=== PATIENT | female | born 1950 | race Caucasian/White ===

== ENCOUNTER 2018-04-29 12:41 | Inpatient (IN) | payer MEDICARE, MEDICAID ==
[2018-04-29 13:43] LABS: HEMATOCRIT 25.1 % (41.0-60); HEMOGLOBIN 8.6 gm/dL (12-16); MEAN CELL VOLUME 86.8 fl (81-100); MEAN CORPUSCULAR HEMOGLOBIN 29.7 pg (27.0-31.0); MEAN CORPUSCULAR HGB CONC 34.2 pg (28.0-36.0); MEAN PLATELET VOLUME 7.6 fl; PLATELET COUNT 186 Th/cmm (150-400); RED BLOOD COUNT 2.89 Mil/cmm (3.80-5.20); RED CELL DISTRIBUTION WIDTH 12.3 % (11.5-20.0); WHITE BLOOD COUNT 9.8 Th/cmm (4.8-10.8)
--- NOTE | 2018-04-29 14:04 | Diagnostic Imaging Report ---
Portable chest x-ray HISTORY: Fever The heart size is normal. Atherosclerotic calcination seen in the aorta. No acute focal point processes. There is an approximate 3.0 cm calcified nodular density within the left lower neck with slight encroachment on the left side of the trachea. Findings may be associated with a relatively large calcified thyroid nodule. Correlation with physical examination recommended. If needed, a CT scan would provide additional assessment. IMPRESSION: 1. No acute abnormalities 2. Atherosclerotic vascular changes 3. Calcified density in the left lower neck near the thoracic inlet. The finding may be associated with a relatively large calcified thyroid nodule. If necessary, a CT scan would provide additional assessment.
[2018-04-29 14:07] LABS: ALB/GLOB RATIO 1.2 (1.0-1.8); ALBUMIN 3.6 gm/dL (3.7-5.3); ANION GAP 14.8 (7.0-16.0); BILIRUBIN,TOTAL 0.3 mg/dL (0.3-1.0); CALCIUM SERUM 9.2 mg/dL (8.6-10.3); CARBON DIOXIDE 25.7 mEq/L (21.0-31.0); CREATININE - SERUM 1.2 mg/dL (0.6-1.2); GFR AFRICAN-AMERICAN 57.6 ml/min (>90); GFR NON AFRICAN-AMERICAN 47.6 ml/min; PHOSPHOROUS 4.1 mg/dL (2.5-5.0); POTASSIUM SERUM 4.5 mEq/L (3.5-5.1); TOTAL PROTEIN,SERUM 6.7 gm/dL (6.0-8.3)
[2018-04-29 14:27] LABS: URINE SOURCE CLEAN C
[2018-04-29 14:37] LABS: URINE BILIRUBIN NEGATIVE (NEGATIVE); URINE BLOOD NEGATIVE (NEGATIVE); URINE GLUCOSE (UA) NEGATIVE (NEGATIVE); URINE KETONE NEGATIVE (NEGATIVE); URINE LEUKOCYTE ESTERASE NEGATIVE (NEGATIVE); URINE NITRATE NEGATIVE (NEGATIVE); URINE PROTEIN NEGATIVE (NEGATIVE); URINE UROBILINOGEN 0.2 E.U./dL (0.2 - 1.0)
[2018-04-29 14:41] LABS: BAND NEUTROPHILE 0 % (0-10); LYMPHOCYTE 18 % (20-50); MONOCYTE 10 % (2-10); NEUTROPHILS 69 % (40-80)
[2018-04-29 14:42] LABS: BASOPHIL 0 % (0-3); EOSINOPHIL 3 % (0-5)
[2018-04-29 14:43] LABS: OPIATES (MORPHINE) QUAL. URINE POSITIVE (NEGATIVE)
[2018-04-29 14:44] LABS: AMPHETAMINE URINE NEGATIVE (NEGATIVE); BARBITURATES URINE NEGATIVE (NEGATIVE); BENZODIAZEPINES QUAL URINE NEGATIVE (NEGATIVE); CANNABINOID THC NEGATIVE (NEGATIVE); COCAINE METABOLITE QUAL URINE NEGATIVE (NEGATIVE); METHADONE URINE NEGATIVE (NEGATIVE); METHAMPHETAMINES QUAL URINE NEGATIVE (NEGATIVE); PHENCYCLIDINE (PCP) URINE NEGATIVE (NEGATIVE); TRICYCLICS (TCA) QUAL. URINE NEGATIVE (NEGATIVE)
[2018-04-29 14:55] LABS: INF A SCREEN NEG FOR INF A; INF B SCREEN NEG FOR INF B
[2018-04-29 15:06] LABS: URINE MICROSCOPIC INDICATED? YES
[2018-04-29 15:07] LABS: URINE BACTERIA FEW /hpf (NONE SEEN); URINE CLARITY CLEAR (CLEAR); URINE COLOR YELLOW; URINE EPITHELIAL CELLS FEW /lpf (FEW); URINE RBC NONE SEEN /hpf (0-5); URINE WBC 0-2 /hpf (0-5)
[2018-04-29] MEDS ORDERED: Lactated Ringer 1,000 ML IV ONE ×2 (15:57→16:37)
[2018-04-29] MEDS ORDERED: IOHEXOL 300mgI/mL 100 ML VIAL ONE (15:57)
--- NOTE | 2018-04-29 19:29 | ED Physician Chart ---
ED Chief Complaint/HPI - Patient Information Date Seen:: 04/29/18 Time Seen:: 12:45 Chief Complaint:: fever for a few days History of Present Illness:: fever for a few days. no complaints except for chronic pain. Allergies:: Allergies Allergy/AdvReac Type Severity Reaction Status Date / Time duloxetine Allergy Verified 04/29/18 12:56 gabapentin Allergy Verified 04/29/18 12:55 Vitals:: Vital Signs - 8 hr 04/29/18 04/29/18 04/29/18 12:45 15:39 16:11 Temp 100.6 F 98.8 F 98.8 F HR 92 92 85 RR 18 19 21 BP 116/72 89/49 90/58 O2 Sat % 94 94 94 04/29/18 04/29/18 16:49 19:14 Temp 98.8 F 98.8 F HR 74 81 RR 16 21 BP 83/38 91/50 O2 Sat % 97 Historian:: Medical Records Review:: Nurse's Note Reviewed, Transfer documents Reviewed ED Review of Systems - Review of Systems General/Constitutional: Fever, No chills, Weakness, No diaphoresis, No edema, No loss of appetite Skin: No rash, No bruising, Other (Stage II sacral decubitus. Stage I heel decubitii) Head: No headache, No light-headedness Eyes: No loss of vision, No pain, No diplopia ENT: No earache, No nasal drainage, No sore throat, No tinnitus Neck: No neck pain, No swelling, No thyromegaly, No stiffness, No mass noted Cardio Vascular: No chest pain, No palpitations, No PND, No orthopnea, No edema Pulmonary: No SOB, No cough, No sputum, No wheezing GI: No nausea, No vomiting, No diarrhea, No pain, No melena, No hematochezia, No constipation, No hematemesis G/U: No dysuria, No frequency, No hematuria Musculoskeletal: No bone or joint pain, No back pain, No muscle pain Endocrine: No polyuria, No polydipsia Psychiatric: No prior psych history, No depression, No anxiety, No suicidal ideation Hematopoietic: No bruising, No lymphadenopathy Allergic/Immuno: No urticaria, No angioedema Neurological: No syncope, No focal symptoms, No weakness, No paresthesia, No headache, No seizure, No dizziness, No confusion, No vertigo ED Past Medical History - Past Medical History Obtainable: No Family Medical History - Family Member Mother History Unknown: Yes ED Physical Exam - Physical Examination General/Constitutional: Awake, Alert, No distress Other Gen/Cons comments:: thin, chronically ill appearing. Head: Atraumatic Eyes: Lids, conjuctiva normal, PERRL, EOMI Other Skin comments:: Stage II sacral decubitus. Stage I heel decubitii ENMT: External ears, nose nl Neck: Nontender, No nuchal rigidity, No stridor Respiratory: Nl effort/Exclusion, Clear to Auscultation, No Wheeze/Rhonchi/Rales Cardio Vascular: RRR, No murmur, gallop, rubs, NL S1 S2 GI: No tenderness/rebounding/guarding, No organomegaly, No hernia, Normal BS's, Nondistended, No mass/bruits, No McBurney tenderness : No CVA tenderness Other Extremities comments:: Stage II sacral decubitus. Stage I heel decubitii Other Neuro/Psych comments:: knows she is in the hospital. screaming for pain medicine and whining nonstop. Other Misc comments:: Stage II sacral decubitus. Stage I heel decubitii ED Labs/Radiology/EKG Results - Lab Results Results: Laboratory Tests 04/29/18 04/29/18 04/29/18 13:35 13:35 13:35 WBC 9.8 RBC 2.89 L Hgb 8.6 L Hct 25.1 L MCV 86.8 MCH 29.7 MCHC Differential 34.2 RDW 12.3 Plt Count 186 MPV 7.6 Add Manual Diff YES Band Neutrophils % 0 Neutrophils (Manual) 69 Lymphocytes 18 L Monocytes 10 Eosinophils 3 Basophils 0 Sodium 138 Potassium 4.5 Chloride 102 Carbon Dioxide 25.7 Anion Gap 14.8 BUN 35 H Creatinine 1.2 Est GFR ( Amer) 57.6 Est GFR (Non-Af Amer) 47.6 BUN/Creatinine Ratio 29.2 Glucose 119 H Whole Bld Lactic Acid 1.60 Calcium 9.2 Phosphorus 4.1 Magnesium 2.0 Total Bilirubin 0.3 AST 10 L ALT 10 Alkaline Phosphatase 109 H Total Protein 6.7 Albumin 3.6 L Globulin 3.1 Albumin/Globulin Ratio 1.2 Urine Source Urine Color Urine Clarity Urine pH Ur Specific [place] Urine Protein Urine Glucose (UA) Urine Ketones Urine Blood Urine Nitrate Urine Bilirubin Urine Urobilinogen Ur Leukocyte Esterase Urine RBC Urine WBC Ur Epithelial Cells Urine Bacteria Urine Opiates Screen Urine Methadone Screen Ur Barbiturates Screen Ur Tricyclics Screen Ur Phencyclidine Scrn Amphetamines Screen U Methamphetamines Scrn U Benzodiazepines Scrn U Cocaine Metab Screen U Cannabinoids Screen Influenza A (Rapid) Influenza B (Rapid) 04/29/18 04/29/18 04/29/18 14:00 14:00 14:00 WBC RBC Hgb Hct MCV MCH MCHC Differential RDW Plt Count MPV Add Manual Diff Band Neutrophils % Neutrophils (Manual) Lymphocytes Monocytes Eosinophils Basophils Sodium Potassium Chloride Carbon Dioxide Anion Gap BUN Creatinine Est GFR ( Amer) Est GFR (Non-Af Amer) BUN/Creatinine Ratio Glucose Whole Bld Lactic Acid Calcium Phosphorus Magnesium Total Bilirubin AST ALT Alkaline Phosphatase Total Protein Albumin Globulin Albumin/Globulin Ratio Urine Source CLEAN C Urine Color YELLOW Urine Clarity CLEAR Urine pH 6.0 Ur Specific [place] 1.015 Urine Protein NEGATIVE Urine Glucose (UA) NEGATIVE Urine Ketones NEGATIVE Urine Blood NEGATIVE Urine Nitrate NEGATIVE Urine Bilirubin NEGATIVE Urine Urobilinogen 0.2 Ur Leukocyte Esterase NEGATIVE Urine RBC NONE SEEN Urine WBC 0-2 Ur Epithelial Cells FEW Urine Bacteria FEW Urine Opiates Screen POSITIVE H Urine Methadone Screen NEGATIVE Ur Barbiturates Screen NEGATIVE Ur Tricyclics Screen NEGATIVE Ur Phencyclidine Scrn NEGATIVE Amphetamines Screen NEGATIVE U Methamphetamines Scrn NEGATIVE U Benzodiazepines Scrn NEGATIVE U Cocaine Metab Screen NEGATIVE U Cannabinoids Screen NEGATIVE Influenza A (Rapid) NEG FOR INF A Influenza B (Rapid) NEG FOR INF B ED Assessment - Assessment General Assessment: patient was whining nonstop that she didn't get her pain medicine. Ativan 0.5 mg IV given to relax her for CT scan with SBP of 130. Became very sedated with Ativan 0.5 mg IV. SBP drop to 80 systolic. 1 liter bolus of LR given. Patient went over for CT scan when SBP over 100. CT scan of neck (which showed a "2.5 x 4.2 x 2.3 cm calcified nodule of the left lobe of the thyroid with substernal extension." CT scan of the head read after patient remained still sedated after Romazicon 0.[address] right after head trauma in the past was negative. CT of the head today: NAD; chronic white matter changes; ASVD. Patient fed herself dinner. Sleeping with desaturations to 92%--oxygen placed at 19:00. Dr. Bernal answered pages after a time and gave admit orders for this patient. EK:44:26 p.m. normal sinus rhythm with flipped t wave in AVL. ED Septic Shock - . Is Septic Shock (SBP<90, OR Lactate>4 mmol\\L) present?: No - <6hrs of presentation: Vital Signs: Vital Signs - 8 hr 04/29/18 04/29/18 04/29/18 12:45 15:39 16:11 Temp 100.6 F 98.8 F 98.8 F HR 92 92 85 RR 18 19 21 BP 116/72 89/49 90/58 O2 Sat % 94 94 94 04/29/18 04/29/18 16:49 19:14 Temp 98.8 F 98.8 F HR 74 81 RR 16 21 BP 83/38 91/50 O2 Sat % 97 ED Reassessment (Disposition) - Reassessment Reassessment Condition:: Improved - Diagnosis Diagnosis:: Fever Hypotension Concussion (prior head trauma) Right frontal hematoma. Hypoxia Sedation Anemia with hematocrit of 25 Left thyroid nodule with extension substernally. - Patient Disposition Discharge/Transfer:: Acute Care w/in this hosp Admitted to:: Telemetry Condition at Disposition:: Stable, Improved
[2018-04-29] MEDS ORDERED: Acetaminophen 500 MG TAB PO PRN (22:02)
[2018-04-29] MEDS ORDERED: Albuterol/Ipratropium Neb 3 ML AERS HHN PRN (22:02)
[2018-04-29 22:06] VITALS: BP 133/57
[2018-04-29] MEDS ORDERED: Piperacillin Sodium/Tazobact 2.25 gm Vial IV ONE (22:52)
[2018-04-29] MEDS: Sodium Chloride 0.9% 1,000 ML IV SCH (22:52)
[2018-04-29] MEDS: Piperacillin/Tazobact 2.25 gm in 0.9% NS 50 ML IV SCH (22:54)
[2018-04-30] MEDS: Albuterol/Ipratropium Neb 3 ML AERS HHN SCH ×4 (03:01→19:58)
[2018-04-30] MEDS ORDERED: Piperacillin Sodium/Tazobact 2.25 gm Vial IV ONE (04:05)
[2018-04-30] MEDS: Piperacillin/Tazobact 2.25 gm in 0.9% NS 50 ML IV SCH ×3 (04:08→17:51)
[2018-04-30 05:02] LABS: % BASOPHILS 0.7 % (0.0-2.0); % EOSINOPHILS 6.2 % (0.0-5.0); % LYMPHOCYTES 16.6 % (20.0-50.0); % MONOCYTES 13.1 % (2.0-10.0); % NEUTROPHILS 63.4 % (40.0-80.0); EOSINOPHILE ABSOLUTE 0.3 Th/cmm (0.1-0.4); HEMATOCRIT 23.5 % (41.0-60); LYMPHOCYTE ABSOLUTE 0.8 Th/cmm (1.5-3.0); MEAN CELL VOLUME 86.4 fl (81-100); MEAN CORPUSCULAR HEMOGLOBIN 29.2 pg (27.0-31.0); MEAN CORPUSCULAR HGB CONC 33.8 pg (28.0-36.0); MONOCYTE ABSOLUTE 0.7 Th/cmm (0.3-1.0); NEUTROPHILE ABSOLUTE 3.3 Th/cmm (1.8-8.0); PLATELET COUNT 171 Th/cmm (150-400); RED BLOOD COUNT 2.72 Mil/cmm (3.80-5.20); RED CELL DISTRIBUTION WIDTH 12.3 % (11.5-20.0)
[2018-04-30 05:08] LABS: WHITE BLOOD COUNT 5.1 Th/cmm (4.8-10.8)
[2018-04-30 05:20] LABS: ANION GAP 11.7 (7.0-16.0); BUN - UREA NITROGEN 30 mg/dL (7-25); CALCIUM SERUM 8.5 mg/dL (8.6-10.3); CARBON DIOXIDE 26.4 mEq/L (21.0-31.0); CHLORIDE 105 mEq/L (98-107); CREATININE - SERUM 1.1 mg/dL (0.6-1.2); GFR AFRICAN-AMERICAN > 60.0 ml/min (>90); GFR NON AFRICAN-AMERICAN 52.7 ml/min; GLUCOSE 111 mg/dL (70-105); POTASSIUM SERUM 4.1 mEq/L (3.5-5.1); SODIUM SERUM 139 mEq/L (136-145)
[2018-04-30] MEDS: Hydrocodone/APAP 10 mg/325 mg Tab PO PRN ×3 (05:54→20:23)
--- NOTE | 2018-04-30 08:28 | Consultation ---
DATE OF CONSULTATION: 04/29/2018 INFECTIOUS DISEASE CONSULTATION REFERRING PHYSICIAN: Dr. Eric Bernal. REASON FOR CONSULTATION: Fever, sepsis. HISTORY OF PRESENT ILLNESS: The patient is a 68-year-old female with past medical history of dementia, sacral stage 2 decubitus ulcer, COPD, hyperlipidemia, hepatitis C, brought in from the nursing facility for chronic pain and fever for last few days. On initial evaluation, the patient's temperature 100.6 degrees Fahrenheit and WBC count 9800. Influenza screen was negative. The patient was found to have some swelling on the right forehead. Zosyn was started and ID consult was called for further antibiotic management. Meanwhile sepsis workup was performed. A urinalysis was noncontributory. Chest x-ray was also noncontributory. The patient also found to have hypotensive with a systolic blood pressure going down to 83. The patient received bolus. PAST MEDICAL HISTORY: Includes dementia, COPD, chronic pain syndrome, hyperlipidemia, and chronic hepatitis C. ALLERGIES: GABAPENTIN AND DULOXETINE. MEDICATIONS: Per medication reconciliation sheet. Antibiotic sr, the patient is on Zosyn. SOCIAL HISTORY: The patient lives in a nursing facility. No history of smoking, alcohol, or drug use. FAMILY HISTORY: Not available. REVIEW OF SYSTEMS: The patient is a poor historian, but the patient has a fever for the last few days. The patient has swelling on the right forehead. PHYSICAL EXAMINATION: VITAL SIGNS: Show temperature 97.9 degrees Fahrenheit, pulse 77, respirations 16, blood pressure 114/45. GENERAL: The patient is comfortable lying in the bed, not in any acute distress, well nourished, well developed as per the age and sex. HEENT: Head is normocephalic, atraumatic. Oral cavity moist, pink tongue. Eyes: No pallor, no icterus. Pupils PERRLA, EOMI. FACE: The patient has swelling on right forehead just below the hairline. NECK: Supple, no JVD, no carotid bruit. Trachea in midline. No thyromegaly. CHEST: Bilateral vesicular sounds, no crackles or wheezing. HEART: S1, S2 within normal limits. Regular rhythm. No murmur, no gallop. ABDOMEN: Soft, nontender, nondistended. Bowel sounds present. EXTREMITIES: No cyanosis, no clubbing, no edema. NEUROLOGIC: Alert and awake, but sedated at this time with the medication. LABORATORY DATA: Current lab shows WBC count is 9800, hemoglobin 8.6, hematocrit 25.1, platelets are 186,000, and neutrophils 69%. Sodium is 138, potassium 4.5, chloride 102, bicarbonate is 26, BUN is 25, creatinine 1.2, and glucose 119. Urinalysis shows negative nitrite, negative leukoesterase, wbc's 0-2, and few bacteria. Urine for drug screen was positive for opiate. Influenza A and B screen is negative. Chest x-ray shows calcified density in the left lower neck near the thoracic inlet. Findings may be associated with relatively large calcified thyroid nodule. Sepsis workup is pending. IMPRESSION: 1. Hypotension and fever, may have sepsis. 2. Right forehead hematoma versus cellulitis or abscess. 3. Chronic hepatitis C. 4. Chronic pain syndrome. 5. Hyperlipidemia. 6. Dementia. 7. Chronic obstructive pulmonary disease. 8. Anemia. RECOMMENDATIONS AND PLAN: We will check alpha fetoprotein. Follow up sepsis workup. Antibiotic sr, continue Zosyn. Fluid support. Thank you, Dr. Eric Bernal for involving me in taking care of this patient. JOB# [id number]
[2018-04-30] MEDS: Sodium Chloride 0.9% 1,000 ML IV SCH (08:44)
--- NOTE | 2018-04-30 09:05 | Diagnostic Imaging Report ---
CT scan soft tissues of the neck with intravenous contrast HISTORY: Mass. Total DLP equals 248 CTDI equals 9.4 Axial sections were obtained from the lower orbits down to level below the thoracic inlet. The exam demonstrates an approximate 2.5 x 4.2 x 2.3 cm calcified nodule within the lower pole of the left lobe of the thyroid gland. Substernal extension. There is preservation of normal fat planes about the major muscular bundles of the neck and about the major vascular landmarks. No lymphadenopathy. The parotid glands appear normal bilaterally. The submandibular glands appear normal. No abnormality seen through the oropharynx. The hypopharyngeal region is unremarkable. No abnormality seen to the region of the vocal cords. The cervical trachea appears normal. IMPRESSION: 1. Calcified nodule within the lower pole of the left lobe of the thyroid gland with substernal extension. Mild encroachment on the adjacent trachea.
--- NOTE | 2018-04-30 09:19 | Diagnostic Imaging Report ---
CT scan of the brain without intravenous contrast HISTORY: Stroke, CVA Total DLP equals 623 CTDI equals 35.4 Axial sections were obtained from the base of the skull to the vertex. There is prominence/enlargement of the ventricular system size. Associated enlargement of cerebral sulci and subarachnoid cisterns. Findings are consistent with changes of generalized cerebral atrophy. No acute parenchymal abnormalities. No acute cerebral hemorrhage. Hypodensity is seen within the supratentorial white matter regions without mass effect. The findings may be associated with chronic small vessel ischemic disease. No extra-axial masses or abnormal fluid collections. Atherosclerotic vascular changes noted. IMPRESSION: 1. No acute abnormalities 2. Cerebral atrophy 3. Supratentorial white matter changes that may reflect chronic small vessel ischemic disease 4. Atherosclerotic vascular changes
--- NOTE | 2018-04-30 17:11 | Infectious Disease Prog Note ---
Infectious Disease Subjective - Review of Systems Service Date: 04/30/18 Subjective: There is no new change, no fever. Infectious Disease Objective - Results Result Diagrams: 04/30/18 04:45 04/30/18 04:45 Recent Labs: Laboratory Last Values WBC 5.1 Th/cmm (4.8-10.8) D 04/30/18 04:45 RBC 2.72 Mil/cmm (3.80-5.20) L 04/30/18 04:45 Hgb 8.0 gm/dL (12-16) L 04/30/18 04:45 Hct 23.5 % (41.0-60) L 04/30/18 04:45 MCV 86.4 fl (81-100) 04/30/18 04:45 MCH 29.2 pg (27.0-31.0) 04/30/18 04:45 MCHC Differential 33.8 pg (28.0-36.0) 04/30/18 04:45 RDW 12.3 % (11.5-20.0) 04/30/18 04:45 Plt Count 171 Th/cmm (150-400) 04/30/18 04:45 MPV 7.0 fl 04/30/18 04:45 Add Manual Diff YES 04/29/18 13:35 Neutrophils % 63.4 % (40.0-80.0) 04/30/18 04:45 Band Neutrophils % 0 % (0-10) 04/29/18 13:35 Lymphocytes % 16.6 % (20.0-50.0) L 04/30/18 04:45 Monocytes % 13.1 % (2.0-10.0) H 04/30/18 04:45 Eosinophils % 6.2 % (0.0-5.0) H 04/30/18 04:45 Basophils % 0.7 % (0.0-2.0) 04/30/18 04:45 Neutrophils (Manual) 69 % (40-80) 04/29/18 13:35 Lymphocytes 18 % (20-50) L 04/29/18 13:35 Monocytes 10 % (2-10) 04/29/18 13:35 Eosinophils 3 % (0-5) 04/29/18 13:35 Basophils 0 % (0-3) 04/29/18 13:35 Sodium 139 mEq/L (136-145) 04/30/18 04:45 Potassium 4.1 mEq/L (3.5-5.1) 04/30/18 04:45 Chloride 105 mEq/L (98-107) 04/30/18 04:45 Carbon Dioxide 26.4 mEq/L (21.0-31.0) 04/30/18 04:45 Anion Gap 11.7 (7.0-16.0) 04/30/18 04:45 BUN 30 mg/dL (7-25) H 04/30/18 04:45 Creatinine 1.1 mg/dL (0.6-1.2) 04/30/18 04:45 Est GFR ( Amer) > 60.0 ml/min (>90) 04/30/18 04:45 Est GFR (Non-Af Amer) 52.7 ml/min 04/30/18 04:45 BUN/Creatinine Ratio 27.3 04/30/18 04:45 Glucose 111 mg/dL (70-105) H 04/30/18 04:45 Whole Bld Lactic Acid 1.60 mmol/L (0.60-1.99) 04/29/18 13:35 Calcium 8.5 mg/dL (8.6-10.3) L 04/30/18 04:45 Phosphorus 4.1 mg/dL (2.5-5.0) 04/29/18 13:35 Magnesium 2.0 mg/dL (1.9-2.7) 04/29/18 13:35 Total Bilirubin 0.3 mg/dL (0.3-1.0) 04/29/18 13:35 AST 10 U/L (13-39) L 04/29/18 13:35 ALT 10 U/L (7-52) 04/29/18 13:35 Alkaline Phosphatase 109 U/L (34-104) H 04/29/18 13:35 Total Protein 6.7 gm/dL (6.0-8.3) 04/29/18 13:35 Albumin 3.6 gm/dL (3.7-5.3) L 04/29/18 13:35 Globulin 3.1 gm/dL 04/29/18 13:35 Albumin/Globulin Ratio 1.2 (1.0-1.8) 04/29/18 13:35 Urine Source CLEAN C 04/29/18 14:00 Urine Color YELLOW 04/29/18 14:00 Urine Clarity CLEAR (CLEAR) 04/29/18 14:00 Urine pH 6.0 (4.6 - 8.0) 04/29/18 14:00 Ur Specific [place] 1.015 (1.005-1.030) 04/29/18 14:00 Urine Protein NEGATIVE mg/dL (NEGATIVE) 04/29/18 14:00 Urine Glucose (UA) NEGATIVE mg/dL (NEGATIVE) 04/29/18 14:00 Urine Ketones NEGATIVE mg/dL (NEGATIVE) 04/29/18 14:00 Urine Blood NEGATIVE (NEGATIVE) 04/29/18 14:00 Urine Nitrate NEGATIVE (NEGATIVE) 04/29/18 14:00 Urine Bilirubin NEGATIVE (NEGATIVE) 04/29/18 14:00 Urine Urobilinogen 0.2 E.U./dL (0.2 - 1.0) 04/29/18 14:00 Ur Leukocyte Esterase NEGATIVE (NEGATIVE) 04/29/18 14:00 Urine RBC NONE SEEN /hpf (0-5) 04/29/18 14:00 Urine WBC 0-2 /hpf (0-5) 04/29/18 14:00 Ur Epithelial Cells FEW /lpf (FEW) 04/29/18 14:00 Urine Bacteria FEW /hpf (NONE SEEN) 04/29/18 14:00 Urine Opiates Screen POSITIVE (NEGATIVE) H 04/29/18 14:00 Urine Methadone Screen NEGATIVE (NEGATIVE) 04/29/18 14:00 Ur Barbiturates Screen NEGATIVE (NEGATIVE) 04/29/18 14:00 Ur Tricyclics Screen NEGATIVE (NEGATIVE) 04/29/18 14:00 Ur Phencyclidine Scrn NEGATIVE (NEGATIVE) 04/29/18 14:00 Amphetamines Screen NEGATIVE (NEGATIVE) 04/29/18 14:00 U Methamphetamines Scrn NEGATIVE (NEGATIVE) 04/29/18 14:00 U Benzodiazepines Scrn NEGATIVE (NEGATIVE) 04/29/18 14:00 U Cocaine Metab Screen NEGATIVE (NEGATIVE) 04/29/18 14:00 U Cannabinoids Screen NEGATIVE (NEGATIVE) 04/29/18 14:00 Influenza A (Rapid) NEG FOR INF A 04/29/18 14:00 Influenza B (Rapid) NEG FOR INF B 04/29/18 14:00 - Physical Exam Vitals and I&O: Vital Signs Temp 98.2 F 04/30/18 16:05 Pulse 80 04/30/18 16:05 Resp 20 04/30/18 16:05 BP 108/46 04/30/18 16:05 Pulse Ox 95 04/30/18 16:05 Intake & Output 04/29/18 04/30/18 04/30/18 18:59 06:59 18:59 Intake Total 1100 1036.667 Balance 1100 1036.667 Weight (lbs) 52.163 kg Intake: Intake, IV Amount 1100 1036.667 Lactated Ringer 1,000 ml 1000 @ 500 mls/hr IV .Q2H ONE Rx#:[id number] Piperacillin Sodium/ 100 50 Tazobact 2.25 gm In Sodium Chloride 0.9% 50 ml @ 100 mls/hr IV Q6H BR[facility]NEY Rx#:[id number] Sodium Chloride 0.9% 1, 986.667 000 ml @ 100 mls/hr IV . Q10H [facility]NEY Rx#:[id number] Other: Weight Source Patient stated Active Medications: Current Medications Acetaminophen (Tylenol Extra Strength) 500 mg PO Q4H PRN PRN Reason: Fever >101 Stop: 06/28/18 22:01 Acetaminophen/Hydrocodone Bitart ([place] 10 Mg/325 Mg) 1 tab PO Q6H PRN PRN Reason: Pain (Severe) Stop: 06/28/18 22:01 Last Admin: 04/30/18 14:23 Dose: 1 tab Albuterol/Ipratropium (Duoneb Neb) 3 ml HHN Q6HRT BRITTNEY Stop: 06/29/18 00:59 Last Admin: 04/30/18 13:55 Dose: 3 ml Albuterol/Ipratropium (Duoneb Neb) 3 ml HHN Q2H PRN PRN Reason: Wheezing Stop: 06/28/18 22:01 Sodium Chloride (Nacl 0.9%) 1,000 mls @ 100 mls/hr IV .Q10H [place]NEY Stop: 06/28/18 22:01 Last Admin: 04/30/18 08:44 Dose: 100 mls/hr Piperacillin Sod/Tazobactam (Sod 2.25 gm/ Sodium Chloride) 50 mls @ 100 mls/hr IV Q6H BRITTNEY; Protocol Stop: 06/28/18 22:44 Last Infusion: 04/30/18 13:09 Dose: Infused Ondansetron HCl (Zofran) 4 mg IV Q6H PRN PRN Reason: Nausea / Vomiting Stop: 06/28/18 22:01 General: no acute distress, well developed, well nourished HEENT: atraumatic, normocephalic, PERRLA, EOMI Neck: supple, no thyromegaly Cardiovascular: S1S2, regular Lungs: clear to auscultation bilaterally, clear to percussion Abdomen: soft, bowel sounds, no tender, no distended, no mass, no hepatomegaly Extremities: no cyanosis, no clubbing, no edema Neurological: awake, alert, oriented Skin: intact Infectious Disease Assmt/Plan - Assessment Assessment: 1. Hypotension and fever, may have sepsis. 2. Right forehead hematoma versus cellulitis or abscess. 3. Chronic hepatitis C. 4. Chronic pain syndrome. 5. Hyperlipidemia. 6. Dementia. 7. Chronic obstructive pulmonary disease. 8. Anemia. - Plan Plan: Continue the same treatment.
[2018-04-30] MEDS ORDERED: Nicotine 21 mg/24 hr Tdm TD SCH (20:00)
--- NOTE | 2018-04-30 20:01 | History & Physical ---
ADMIT DATE: 04/30/2018 PULMONARY CONSULTATION NOTE REASON FOR CONSULTATION: Shortness of breath. HISTORY OF PRESENT ILLNESS: This is a 68-year-old female who had had a fall a couple of weeks ago hurting her head and subsequently she was at [facility] where she was doing okay, but last 2-3 days, the patient started having a fever, 122 according to the daughter. Subsequently, the patient was brought here and I was asked to see this patient because of shortness of breath. The patient has advanced COPD, quit smoking 2-1/2 equal or more than [id number] smoker. He has a significant neuropathy is taking lot of analgesic. The patient says she has chronic shortness of breath from nonproductive coughing versus abscess with taking a lot of pain medicine including [place] at this time. No pleuritic chest pain. Denies of any hemoptysis, etc. PAST MEDICAL HISTORY: History of neuropathy, history of COPD, history of chronic pain syndrome, recently fever and a history of recent head injury, but otherwise unremarkable and smoking history as mentioned before, but otherwise unremarkable. Denies of any specific allergies to any medications except for gabapentin and ____ antidepressant. PHYSICAL EXAMINATION: GENERAL: This is an elderly looking female and says complains of pain. No respiratory distress, etc. VITAL SIGNS: The patient's recorded temperature is 98.2, blood pressure 108/46, saturation is 95% on room air. HEENT: There is a bump with some ecchymosis on the ____ area that looks like an old bump. Pupils appear to be equal and react to light. Conjunctivae are slightly pallor. Oral cavity shows edentulous. NECK: No nodes in the neck could be palpated. CHEST: Shows occasional rhonchi with diminished air entry. HEART: Regular. ABDOMEN: Soft, nontender. EXTREMITIES: Shows atrophic changes, otherwise unremarkable. LABORATORY DATA: White count is 5.1, lymphocytes 16. Electrolytes okay. BUN is 30. Sugar is 111 and urine is benign except for opiates is positive and the patient's CT of the neck shows some calcified nodule in the lower pole of the left lower lobe thyroid, otherwise unremarkable and the patient's chest x-ray shows consistent COPD. IMPRESSION: 1. Fever, etiology not clearcut. 2. Mild asthmatic bronchitis. 3. History of recent fall. 4. History of severe peripheral neuropathy. PLANS AND SUGGESTIONS: We will continue aggressive respiratory care inhalation treatment, and will defer pain management per primary and go from there. JOB# [id number]
[2018-04-30] MEDS: Nicotine 21 mg/24 hr Tdm TD SCH (20:19)
--- NOTE | 2018-04-30 22:22 | History & Physical ---
ADMIT DATE: 04/29/2018 CHIEF COMPLAINT: Fever. HISTORY OF PRESENT ILLNESS: This is a 68-year-old female with underlying history of COPD, chronic pain syndrome, chronic smoker, who [facility], started developing fever, productive cough, shortness of breath, so the patient was brought back to the Emergency Room. The patient was evaluated. The patient noticed to have hypotension, so the patient admitted for sepsis workup. During my evaluation, she feels fine, still has productive cough with chest congestions. No reported fever since admission. The patient also complained both lower extremity weakness. The patient stated for the past 6 months, general condition was declining, eventually became bed bound. Also, has decreased appetite. She is not eating and drinking well. Family was at the bedside during my evaluation. PAST MEDICAL HISTORY: COPD and chronic pain syndrome. PAST SURGICAL HISTORY: Hip surgery in the past. FAMILY HISTORY: Noncontributory. SOCIAL HISTORY: Chronic smoker for 50 plus years of smoking. No alcohol or drug use reported. REVIEW OF SYSTEMS: Positive for cough, weakness, shortness of breath. No nausea, no vomiting, no chest pain, no abdominal pain. No hematemesis, no melena or hematuria. No headache, no trouble vision or trouble speech, no upper extremity weakness. Lower extremity weakness reported. PHYSICAL EXAMINATION: VITAL SIGNS: Her temperature 98.2, pulse , respirations 20, blood pressure , 95% on room air. Pain 0/10. GENERAL APPEARANCE: The patient does not seem in distress, sitting comfortably in the bed. HEENT: No neck stiffness. Negative for JVD. CHEST: Bilateral rales noted. HEART: S1, S2 normal. LUNGS: Clear. ABDOMEN: Soft, nontender. NEUROLOGIC: Alert, follows command. Both lower extremities strength 3/5, upper extremities strength is normal. DTR +2 in both upper and lower extremity. AVAILABLE LABORATORY DATA: WBC is 5.1, hemoglobin is 8.0, platelets is 171. Sodium 139, potassium 4.1, BUN 30, creatinine 1.1. Lactic acid 1.6, AST 10, ALT 10, total protein 6.7, albumin 3.6, globulin 3.1. Chest x-ray negative for any significant infiltrate. Head CT negative for acute significant finding. Soft tissue neck CT: Calcified nodule in left lower thyroid gland with substernal extension noted. ASSESSMENT: 1. Fever, hypotension, rule out sepsis. 2. Acute tracheobronchitis. 3. Anemia. 4. Chronic smoker. 5. Lower extremity weakness. 6. Chronic pain syndrome. 7. Cachexia. 8. Chronic pain syndrome. PLAN: The patient admitted to tele unit. The patient was started on empiric IV broad spectrum antibiotic. ID and Pulmonology consulted. CT chest ordered by photoresist contact printer. Physical therapy ordered. Tumor markers ordered. Neurology consulted for lower extremity weakness. The patient got nicotine patch for underlying nicotine dependency. Follow up labs in the morning. Discussed with the patient and family regarding the patient's condition. Plan discussed with nursing staff. The patient given [place] as needed for chronic pain syndrome. JOB# [id number]
[2018-05-01] MEDS: Piperacillin/Tazobact 2.25 gm in 0.9% NS 50 ML IV SCH ×5 (00:24→22:17)
[2018-05-01] MEDS: Albuterol/Ipratropium Neb 3 ML AERS HHN SCH ×4 (01:53→19:02)
[2018-05-01 04:59] LABS: % BASOPHILS 0.7 % (0.0-2.0); % EOSINOPHILS 8.2 % (0.0-5.0); % LYMPHOCYTES 21.3 % (20.0-50.0); % MONOCYTES 11.5 % (2.0-10.0); % NEUTROPHILS 58.3 % (40.0-80.0); EOSINOPHILE ABSOLUTE 0.4 Th/cmm (0.1-0.4); HEMATOCRIT 23.8 % (41.0-60); MEAN CELL VOLUME 86.4 fl (81-100); MEAN CORPUSCULAR HEMOGLOBIN 28.3 pg (27.0-31.0); MEAN CORPUSCULAR HGB CONC 32.7 pg (28.0-36.0); MEAN PLATELET VOLUME 7.2 fl; MONOCYTE ABSOLUTE 0.6 Th/cmm (0.3-1.0); NEUTROPHILE ABSOLUTE 2.8 Th/cmm (1.8-8.0); PLATELET COUNT 178 Th/cmm (150-400); RED BLOOD COUNT 2.75 Mil/cmm (3.80-5.20); RED CELL DISTRIBUTION WIDTH 12.3 % (11.5-20.0); WHITE BLOOD COUNT 4.8 Th/cmm (4.8-10.8)
[2018-05-01 05:07] LABS: HEMOGLOBIN 7.8 gm/dL (12-16)
[2018-05-01 05:23] LABS: ALB/GLOB RATIO 1.1 (1.0-1.8); ALBUMIN 3.4 gm/dL (3.7-5.3); ALKALINE PHOSPHATASE 101 U/L (34-104); ANION GAP 12.2 (7.0-16.0); BILIRUBIN,TOTAL 0.3 mg/dL (0.3-1.0); BUN - UREA NITROGEN 22 mg/dL (7-25); CALCIUM SERUM 9.3 mg/dL (8.6-10.3); CARBON DIOXIDE 26.7 mEq/L (21.0-31.0); CHLORIDE 107 mEq/L (98-107); CREATININE - SERUM 0.9 mg/dL (0.6-1.2); GFR AFRICAN-AMERICAN > 60.0 ml/min (>90); GFR NON AFRICAN-AMERICAN > 60.0 ml/min; GLUCOSE 97 mg/dL (70-105); POTASSIUM SERUM 3.9 mEq/L (3.5-5.1); SGOT 10 U/L (13-39); SGPT/ALT 9 U/L (7-52); SODIUM SERUM 142 mEq/L (136-145); TOTAL PROTEIN,SERUM 6.6 gm/dL (6.0-8.3)
[2018-05-01] MEDS: Budesonide 0.5 Mg/2 mL Ud HHN SCH (06:56)
[2018-05-01] MEDS: Hydrocodone/APAP 10 mg/325 mg Tab PO PRN ×3 (08:48→22:17)
--- NOTE | 2018-05-01 10:59 | Diagnostic Imaging Report ---
CT Chest without IV contrast HISTORY: COPD, fever COMPARISON: Chest x-ray on 04/29/2018. Technique: Axial images were obtained from the base of the neck to the upper abdomen without administration of IV contrast. Coronal reconstructions were made. Total DLP 192 CTD I 4.7 Findings: There is a large calcified nodule within the left lobe of thyroid gland measuring 2.6 cm. Evaluation of mediastinum is limited due to lack of IV contrast. No mediastinal lymphadenopathy. Heart size normal. Diffuse atherosclerosis is noted with coronary artery calcifications. No pericardial effusion. No evidence of an aneurysm. Evaluation of the lungs demonstrates emphysematous changes. Areas of scarring are also noted. Few tree-in-bud nodular infiltrates of the inferior aspect of the right upper lobe is noted. Biapical scarring is noted. There is also a 3 moderate calcified granuloma in the superior segment of the left lower lobe. No focal consolidation or effusions. The upper abdomen demonstrates diffuse atherosclerosis. Degenerative changes of the spine are noted. Old compression deformities of lower thoracic vertebral bodies are noted. IMPRESSION: Diffuse emphysematous lung changes. Few faint tree-in-bud infiltrates of the right lung are noted which are nonspecific may be of previous infectious or inflammatory process. Please correlate clinically and with old exams. Consider follow-up surveillance if indicated No focal consolidation Diffuse atherosclerotic vascular disease Large diffusely calcified left thyroid nodule. Recommend short-term follow-up with ultrasound.
[2018-05-01] MEDS: Sodium Chloride 0.9% 1,000 ML IV SCH (13:48)
--- NOTE | 2018-05-01 19:08 | History & Physical ---
ADMIT DATE: 05/01/2018 HEMATOLOGY ONCOLOGY CONSULTATION REFERRING PHYSICIAN: Dr. Eric Bernal. REASON FOR CONSULTATION: Severe anemia. The patient is a 68-year-old female who was admitted with fever and respiratory symptoms. Workup revealed left thyroid mass and severe anemia, therefore I was asked to evaluate. PAST MEDICAL HISTORY: COPD, chronic pain, leg weakness. PAST SURGICAL HISTORY: Hip surgery. MEDICATIONS: Reviewed. SOCIAL HISTORY: Long history of smoking. PHYSICAL EXAMINATION: GENERAL: The patient is not in distress, awake. VITAL SIGNS: Stable. HEENT: Atraumatic. NECK: No lymphadenopathy. Slight fullness in the left peritracheal area, but no palpable masses. CHEST: Scattered rhonchi. ABDOMEN: Soft. EXTREMITIES: No edema. NERVOUS SYSTEM: Weakness of both lower extremities. LABORATORY WORK: Hemoglobin 7.8, MCV 86 from admission, hemoglobin was 8.6 with normal white count and platelet count, increased monocytes 11.5%. Creatinine 0.9. Liver functions normal. TSH 0.8. Urine: No evidence of hematuria. A CT scan of the head: No acute events, soft tissue of the neck, left thyroid lobe calcified large cyst. Chest x-ray, no acute abnormalities. ASSESSMENT: 1. Left thyroid cyst will be evaluated with fine needle aspiration for cytology. 2. Normocytic anemia with no clear evidence of bleeding. We will obtain comprehensive anemia workup, stool occult blood, iron studies, B12, and folate level and monitor hemoglobin with no transfusion for now since the patient is still asymptomatic. Thank you, Dr. Bernal for the opportunity to participate in the care of this interesting case with you. JOB# [id number]
[2018-05-01] MEDS: Nicotine 21 mg/24 hr Tdm TD SCH (22:18)
--- NOTE | 2018-05-01 22:22 | General Progress Note ---
Objective - Results Result Diagrams: 05/01/18 04:48 05/01/18 04:48 Recent Labs: Laboratory Last Values WBC 4.8 Th/cmm (4.8-10.8) 05/01/18 04:48 RBC 2.75 Mil/cmm (3.80-5.20) L 05/01/18 04:48 Hgb 7.8 gm/dL (12-16) L* 05/01/18 04:48 Hct 23.8 % (41.0-60) L 05/01/18 04:48 MCV 86.4 fl (81-100) 05/01/18 04:48 MCH 28.3 pg (27.0-31.0) 05/01/18 04:48 MCHC Differential 32.7 pg (28.0-36.0) 05/01/18 04:48 RDW 12.3 % (11.5-20.0) 05/01/18 04:48 Plt Count 178 Th/cmm (150-400) 05/01/18 04:48 MPV 7.2 fl 05/01/18 04:48 Add Manual Diff YES 04/29/18 13:35 Neutrophils % 58.3 % (40.0-80.0) 05/01/18 04:48 Band Neutrophils % 0 % (0-10) 04/29/18 13:35 Lymphocytes % 21.3 % (20.0-50.0) 05/01/18 04:48 Monocytes % 11.5 % (2.0-10.0) H 05/01/18 04:48 Eosinophils % 8.2 % (0.0-5.0) H 05/01/18 04:48 Basophils % 0.7 % (0.0-2.0) 05/01/18 04:48 Neutrophils (Manual) 69 % (40-80) 04/29/18 13:35 Lymphocytes 18 % (20-50) L 04/29/18 13:35 Monocytes 10 % (2-10) 04/29/18 13:35 Eosinophils 3 % (0-5) 04/29/18 13:35 Basophils 0 % (0-3) 04/29/18 13:35 Sodium 142 mEq/L (136-145) 05/01/18 04:48 Potassium 3.9 mEq/L (3.5-5.1) 05/01/18 04:48 Chloride 107 mEq/L (98-107) 05/01/18 04:48 Carbon Dioxide 26.7 mEq/L (21.0-31.0) 05/01/18 04:48 Anion Gap 12.2 (7.0-16.0) 05/01/18 04:48 BUN 22 mg/dL (7-25) 05/01/18 04:48 Creatinine 0.9 mg/dL (0.6-1.2) 05/01/18 04:48 Est GFR ( Amer) > 60.0 ml/min (>90) 05/01/18 04:48 Est GFR (Non-Af Amer) > 60.0 ml/min 05/01/18 04:48 BUN/Creatinine Ratio 24.4 05/01/18 04:48 Glucose 97 mg/dL (70-105) 05/01/18 04:48 Whole Bld Lactic Acid 1.60 mmol/L (0.60-1.99) 04/29/18 13:35 Calcium 9.3 mg/dL (8.6-10.3) 05/01/18 04:48 Phosphorus 4.1 mg/dL (2.5-5.0) 04/29/18 13:35 Magnesium 2.0 mg/dL (1.9-2.7) 04/29/18 13:35 Total Bilirubin 0.3 mg/dL (0.3-1.0) 05/01/18 04:48 AST 10 U/L (13-39) L 05/01/18 04:48 ALT 9 U/L (7-52) 05/01/18 04:48 Alkaline Phosphatase 101 U/L (34-104) 05/01/18 04:48 Ammonia 42 umol/L (16-53) 05/01/18 04:48 Total Protein 6.6 gm/dL (6.0-8.3) 05/01/18 04:48 Albumin 3.4 gm/dL (3.7-5.3) L 05/01/18 04:48 Globulin 3.2 gm/dL 05/01/18 04:48 Albumin/Globulin Ratio 1.1 (1.0-1.8) 05/01/18 04:48 Tumor Marker AFP 1.5 ng/mL (0.0-8.3) 04/30/18 04:45 TSH 0.80 uIU/ml (0.34-5.60) 05/01/18 04:48 Urine Source CLEAN C 04/29/18 14:00 Urine Color YELLOW 04/29/18 14:00 Urine Clarity CLEAR (CLEAR) 04/29/18 14:00 Urine pH 6.0 (4.6 - 8.0) 04/29/18 14:00 Ur Specific [place] 1.015 (1.005-1.030) 04/29/18 14:00 Urine Protein NEGATIVE mg/dL (NEGATIVE) 04/29/18 14:00 Urine Glucose (UA) NEGATIVE mg/dL (NEGATIVE) 04/29/18 14:00 Urine Ketones NEGATIVE mg/dL (NEGATIVE) 04/29/18 14:00 Urine Blood NEGATIVE (NEGATIVE) 04/29/18 14:00 Urine Nitrate NEGATIVE (NEGATIVE) 04/29/18 14:00 Urine Bilirubin NEGATIVE (NEGATIVE) 04/29/18 14:00 Urine Urobilinogen 0.2 E.U./dL (0.2 - 1.0) 04/29/18 14:00 Ur Leukocyte Esterase NEGATIVE (NEGATIVE) 04/29/18 14:00 Urine RBC NONE SEEN /hpf (0-5) 04/29/18 14:00 Urine WBC 0-2 /hpf (0-5) 04/29/18 14:00 Ur Epithelial Cells FEW /lpf (FEW) 04/29/18 14:00 Urine Bacteria FEW /hpf (NONE SEEN) 04/29/18 14:00 Urine Opiates Screen POSITIVE (NEGATIVE) H 04/29/18 14:00 Urine Methadone Screen NEGATIVE (NEGATIVE) 04/29/18 14:00 Ur Barbiturates Screen NEGATIVE (NEGATIVE) 04/29/18 14:00 Ur Tricyclics Screen NEGATIVE (NEGATIVE) 04/29/18 14:00 Ur Phencyclidine Scrn NEGATIVE (NEGATIVE) 04/29/18 14:00 Amphetamines Screen NEGATIVE (NEGATIVE) 04/29/18 14:00 U Methamphetamines Scrn NEGATIVE (NEGATIVE) 04/29/18 14:00 U Benzodiazepines Scrn NEGATIVE (NEGATIVE) 04/29/18 14:00 U Cocaine Metab Screen NEGATIVE (NEGATIVE) 04/29/18 14:00 U Cannabinoids Screen NEGATIVE (NEGATIVE) 04/29/18 14:00 Influenza A (Rapid) NEG FOR INF A 04/29/18 14:00 Influenza B (Rapid) NEG FOR INF B 04/29/18 14:00 - Physical Exam Vitals and I&O: Vital Signs Temp 98.3 F 05/01/18 16:00 Pulse 75 05/01/18 19:28 Resp 18 05/01/18 19:28 BP 112/66 05/01/18 16:00 Pulse Ox 96 05/01/18 19:28 Intake & Output 05/01/18 05/01/18 05/02/18 06:59 18:59 06:59 Intake Total 50 100 Balance 50 100 Weight (lbs) 52.163 kg Intake: Intake, IV Amount 50 100 Piperacillin Sodium/ 50 100 Tazobact 2.25 gm In Sodium Chloride 0.9% 50 ml @ 100 mls/hr IV Q6H [facility] Rx#:[id number] Other: # Voids 2 Weight Source Bedscale Active Medications: Current Medications Acetaminophen (Tylenol Extra Strength) 500 mg PO Q4H PRN PRN Reason: Fever >101 Stop: 06/28/18 22:01 Acetaminophen/Hydrocodone Bitart ([place] 10 Mg/325 Mg) 1 tab PO Q6H PRN PRN Reason: Pain (Severe) Stop: 06/28/18 22:01 Last Admin: 05/01/18 22:17 Dose: 1 tab Albuterol/Ipratropium (Duoneb Neb) 3 ml HHN Q6HRT [facility] Stop: 06/29/18 00:59 Last Admin: 05/01/18 19:02 Dose: 3 ml Albuterol/Ipratropium (Duoneb Neb) 3 ml HHN Q2H PRN PRN Reason: Wheezing Stop: 06/28/18 22:01 Budesonide (Pulmicort) 0.5 mg HHN BIDRT [facility] Stop: 06/29/18 18:59 Last Admin: 05/01/18 06:56 Dose: 0.5 mg Sodium Chloride (Nacl 0.9%) 1,000 mls @ 100 mls/hr IV .Q10H [facility] Stop: 06/28/18 22:01 Last Admin: 05/01/18 13:48 Dose: 100 mls/hr Piperacillin Sod/Tazobactam (Sod 2.25 gm/ Sodium Chloride) 50 mls @ 100 mls/hr IV Q6H [facility]; Protocol Stop: 06/28/18 22:44 Last Admin: 05/01/18 22:17 Dose: 100 mls/hr Nicotine (Nicotine Transdermal System) 21 mg TD DAILY@1999 [facility] Stop: 06/29/18 19:59 Last Admin: 05/01/18 22:18 Dose: 21 mg Ondansetron HCl (Zofran) 4 mg IV Q6H PRN PRN Reason: Nausea / Vomiting Stop: 06/28/18 22:01
[2018-05-02] MEDS: Albuterol/Ipratropium Neb 3 ML AERS HHN SCH ×4 (01:56→19:10)
[2018-05-02] MEDS: Sodium Chloride 0.9% 1,000 ML IV SCH ×2 (04:22→16:29)
[2018-05-02] MEDS: Piperacillin/Tazobact 2.25 gm in 0.9% NS 50 ML IV SCH ×4 (04:29→22:11)
[2018-05-02 08:08] LABS: IRON LC 16 ug/dL (27-139); TIBC (LC) 213 ug/dL (250-450); UIBC 197 ug/dL (118-369)
[2018-05-02] MEDS: Budesonide 0.5 Mg/2 mL Ud HHN SCH ×2 (08:17→19:11)
--- NOTE | 2018-05-02 10:18 | General Progress Note ---
Subjective - Review of Systems Service Date: 05/02/18 Subjective: no new sxs Objective - Results Result Diagrams: 05/01/18 04:48 05/01/18 04:48 Recent Labs: Laboratory Last Values WBC 4.8 Th/cmm (4.8-10.8) 05/01/18 04:48 RBC 2.75 Mil/cmm (3.80-5.20) L 05/01/18 04:48 Hgb 7.8 gm/dL (12-16) L* 05/01/18 04:48 Hct 23.8 % (41.0-60) L 05/01/18 04:48 MCV 86.4 fl (81-100) 05/01/18 04:48 MCH 28.3 pg (27.0-31.0) 05/01/18 04:48 MCHC Differential 32.7 pg (28.0-36.0) 05/01/18 04:48 RDW 12.3 % (11.5-20.0) 05/01/18 04:48 Plt Count 178 Th/cmm (150-400) 05/01/18 04:48 MPV 7.2 fl 05/01/18 04:48 Add Manual Diff YES 04/29/18 13:35 Neutrophils % 58.3 % (40.0-80.0) 05/01/18 04:48 Band Neutrophils % 0 % (0-10) 04/29/18 13:35 Lymphocytes % 21.3 % (20.0-50.0) 05/01/18 04:48 Monocytes % 11.5 % (2.0-10.0) H 05/01/18 04:48 Eosinophils % 8.2 % (0.0-5.0) H 05/01/18 04:48 Basophils % 0.7 % (0.0-2.0) 05/01/18 04:48 Neutrophils (Manual) 69 % (40-80) 04/29/18 13:35 Lymphocytes 18 % (20-50) L 04/29/18 13:35 Monocytes 10 % (2-10) 04/29/18 13:35 Eosinophils 3 % (0-5) 04/29/18 13:35 Basophils 0 % (0-3) 04/29/18 13:35 Sodium 142 mEq/L (136-145) 05/01/18 04:48 Potassium 3.9 mEq/L (3.5-5.1) 05/01/18 04:48 Chloride 107 mEq/L (98-107) 05/01/18 04:48 Carbon Dioxide 26.7 mEq/L (21.0-31.0) 05/01/18 04:48 Anion Gap 12.2 (7.0-16.0) 05/01/18 04:48 BUN 22 mg/dL (7-25) 05/01/18 04:48 Creatinine 0.9 mg/dL (0.6-1.2) 05/01/18 04:48 Est GFR ( Amer) > 60.0 ml/min (>90) 05/01/18 04:48 Est GFR (Non-Af Amer) > 60.0 ml/min 05/01/18 04:48 BUN/Creatinine Ratio 24.4 05/01/18 04:48 Glucose 97 mg/dL (70-105) 05/01/18 04:48 Whole Bld Lactic Acid 1.60 mmol/L (0.60-1.99) 04/29/18 13:35 Calcium 9.3 mg/dL (8.6-10.3) 05/01/18 04:48 Phosphorus 4.1 mg/dL (2.5-5.0) 04/29/18 13:35 Magnesium 2.0 mg/dL (1.9-2.7) 04/29/18 13:35 Iron 16 ug/dL (27-139) L 05/01/18 04:48 TIBC 213 ug/dL (250-450) L 05/01/18 04:48 Iron Saturation 8 % (15-55) L 05/01/18 04:48 Unsaturated IBC 197 ug/dL (118-369) 05/01/18 04:48 Total Bilirubin 0.3 mg/dL (0.3-1.0) 05/01/18 04:48 AST 10 U/L (13-39) L 05/01/18 04:48 ALT 9 U/L (7-52) 05/01/18 04:48 Alkaline Phosphatase 101 U/L (34-104) 05/01/18 04:48 Ammonia 42 umol/L (16-53) 05/01/18 04:48 Total Protein 6.6 gm/dL (6.0-8.3) 05/01/18 04:48 Albumin 3.4 gm/dL (3.7-5.3) L 05/01/18 04:48 Globulin 3.2 gm/dL 05/01/18 04:48 Albumin/Globulin Ratio 1.1 (1.0-1.8) 05/01/18 04:48 Tumor Marker AFP 1.5 ng/mL (0.0-8.3) 04/30/18 04:45 TSH 0.80 uIU/ml (0.34-5.60) 05/01/18 04:48 Urine Source CLEAN C 04/29/18 14:00 Urine Color YELLOW 04/29/18 14:00 Urine Clarity CLEAR (CLEAR) 04/29/18 14:00 Urine pH 6.0 (4.6 - 8.0) 04/29/18 14:00 Ur Specific [place] 1.015 (1.005-1.030) 04/29/18 14:00 Urine Protein NEGATIVE mg/dL (NEGATIVE) 04/29/18 14:00 Urine Glucose (UA) NEGATIVE mg/dL (NEGATIVE) 04/29/18 14:00 Urine Ketones NEGATIVE mg/dL (NEGATIVE) 04/29/18 14:00 Urine Blood NEGATIVE (NEGATIVE) 04/29/18 14:00 Urine Nitrate NEGATIVE (NEGATIVE) 04/29/18 14:00 Urine Bilirubin NEGATIVE (NEGATIVE) 04/29/18 14:00 Urine Urobilinogen 0.2 E.U./dL (0.2 - 1.0) 04/29/18 14:00 Ur Leukocyte Esterase NEGATIVE (NEGATIVE) 04/29/18 14:00 Urine RBC NONE SEEN /hpf (0-5) 04/29/18 14:00 Urine WBC 0-2 /hpf (0-5) 04/29/18 14:00 Ur Epithelial Cells FEW /lpf (FEW) 04/29/18 14:00 Urine Bacteria FEW /hpf (NONE SEEN) 04/29/18 14:00 Urine Opiates Screen POSITIVE (NEGATIVE) H 04/29/18 14:00 Urine Methadone Screen NEGATIVE (NEGATIVE) 04/29/18 14:00 Ur Barbiturates Screen NEGATIVE (NEGATIVE) 04/29/18 14:00 Ur Tricyclics Screen NEGATIVE (NEGATIVE) 04/29/18 14:00 Ur Phencyclidine Scrn NEGATIVE (NEGATIVE) 04/29/18 14:00 Amphetamines Screen NEGATIVE (NEGATIVE) 04/29/18 14:00 U Methamphetamines Scrn NEGATIVE (NEGATIVE) 04/29/18 14:00 U Benzodiazepines Scrn NEGATIVE (NEGATIVE) 04/29/18 14:00 U Cocaine Metab Screen NEGATIVE (NEGATIVE) 04/29/18 14:00 U Cannabinoids Screen NEGATIVE (NEGATIVE) 04/29/18 14:00 Influenza A (Rapid) NEG FOR INF A 04/29/18 14:00 Influenza B (Rapid) NEG FOR INF B 04/29/18 14:00 - Physical Exam Vitals and I&O: Vital Signs Temp 97.8 F 05/02/18 08:00 Pulse 90 05/02/18 08:18 Resp 18 05/02/18 08:18 BP 141/71 05/02/18 08:00 Pulse Ox 98 05/02/18 08:18 Intake & Output 05/01/18 05/02/18 05/02/18 18:59 06:59 18:59 Intake Total 100 1250 Balance 100 1250 Weight (lbs) 52.163 kg Intake: Intake, IV Amount 100 1100 Piperacillin Sodium/ 100 100 Tazobact 2.25 gm In Sodium Chloride 0.9% 50 ml @ 100 mls/hr IV Q6H [facility] Rx#:[id number] Sodium Chloride 0.9% 1, 1000 000 ml @ 100 mls/hr IV . Q10H [facility] Rx#:[id number] Oral 150 Other: # Voids 3 # Bowel Movements 0 Weight Source Bedscale Active Medications: Current Medications Acetaminophen (Tylenol Extra Strength) 500 mg PO Q4H PRN PRN Reason: Fever >101 Stop: 06/28/18 22:01 Acetaminophen/Hydrocodone Bitart ([employer] 10 Mg/325 Mg) 1 tab PO Q6H PRN PRN Reason: Pain (Severe) Stop: 06/28/18 22:01 Last Admin: 05/01/18 22:17 Dose: 1 tab Albuterol/Ipratropium (Duoneb Neb) 3 ml HHN Q6HRT [facility] Stop: 06/29/18 00:59 Last Admin: 05/02/18 07:37 Dose: 3 ml Albuterol/Ipratropium (Duoneb Neb) 3 ml HHN Q2H PRN PRN Reason: Wheezing Stop: 06/28/18 22:01 Budesonide (Pulmicort) 0.5 mg HHN BIDRT [facility] Stop: 06/29/18 18:59 Last Admin: 05/02/18 08:17 Dose: Not Given Sodium Chloride (Nacl 0.9%) 1,000 mls @ 100 mls/hr IV .Q10H [facility] Stop: 06/28/18 22:01 Last Admin: 05/02/18 04:22 Dose: 100 mls/hr Piperacillin Sod/Tazobactam (Sod 2.25 gm/ Sodium Chloride) 50 mls @ 100 mls/hr IV Q6H [facility]; Protocol Stop: 06/28/18 22:44 Last Admin: 05/02/18 09:57 Dose: 100 mls/hr Nicotine (Nicotine Transdermal System) 21 mg TD DAILY@1999 [facility] Stop: 06/29/18 19:59 Last Admin: 05/01/18 22:18 Dose: 21 mg Ondansetron HCl (Zofran) 4 mg IV Q6H PRN PRN Reason: Nausea / Vomiting Stop: 06/28/18 22:01 Lungs: Clear to auscultation Abdomen: Soft, Other (sacral decube ulcer) Assessment/Plan - Assessment Assessment: 1. Left thyroid cyst will be evaluated with fine needle aspiration for cytology. 2. Normocytic anemia with no clear evidence of bleeding. We will obtain comprehensive anemia workup, stool occult blood, iron studies, B12, and folate level and monitor hemoglobin with no transfusion for now since the patient is still asymptomatic. 05/02: explained the rationale for thyroid cyst biopsy and she signed consent. Anemia mcneill suggestive of iron deficiency; awaiting ferritin. follow path
[2018-05-02] MEDS: Hydrocodone/APAP 10 mg/325 mg Tab PO PRN ×3 (10:25→22:10)
[2018-05-02 11:13] LABS: FOLIC ACID >20.0 ng/mL (>3.0)
[2018-05-02 13:09] LABS: CA 19-9 (PANCREATIC) 41 U/mL (0-35); CARCINOEMBRYONIC ANTIGEN 4.1 ng/mL (0.0-4.7)
--- NOTE | 2018-05-02 13:53 | Infectious Disease Prog Note ---
Infectious Disease Subjective - Review of Systems Service Date: 05/02/18 Subjective: There is no new change, no fever. Infectious Disease Objective - Results Result Diagrams: 05/01/18 04:48 05/01/18 04:48 Recent Labs: Laboratory Last Values WBC 4.8 Th/cmm (4.8-10.8) 05/01/18 04:48 RBC 2.75 Mil/cmm (3.80-5.20) L 05/01/18 04:48 Hgb 7.8 gm/dL (12-16) L* 05/01/18 04:48 Hct 23.8 % (41.0-60) L 05/01/18 04:48 MCV 86.4 fl (81-100) 05/01/18 04:48 MCH 28.3 pg (27.0-31.0) 05/01/18 04:48 MCHC Differential 32.7 pg (28.0-36.0) 05/01/18 04:48 RDW 12.3 % (11.5-20.0) 05/01/18 04:48 Plt Count 178 Th/cmm (150-400) 05/01/18 04:48 MPV 7.2 fl 05/01/18 04:48 Add Manual Diff YES 04/29/18 13:35 Neutrophils % 58.3 % (40.0-80.0) 05/01/18 04:48 Band Neutrophils % 0 % (0-10) 04/29/18 13:35 Lymphocytes % 21.3 % (20.0-50.0) 05/01/18 04:48 Monocytes % 11.5 % (2.0-10.0) H 05/01/18 04:48 Eosinophils % 8.2 % (0.0-5.0) H 05/01/18 04:48 Basophils % 0.7 % (0.0-2.0) 05/01/18 04:48 Neutrophils (Manual) 69 % (40-80) 04/29/18 13:35 Lymphocytes 18 % (20-50) L 04/29/18 13:35 Monocytes 10 % (2-10) 04/29/18 13:35 Eosinophils 3 % (0-5) 04/29/18 13:35 Basophils 0 % (0-3) 04/29/18 13:35 Sodium 142 mEq/L (136-145) 05/01/18 04:48 Potassium 3.9 mEq/L (3.5-5.1) 05/01/18 04:48 Chloride 107 mEq/L (98-107) 05/01/18 04:48 Carbon Dioxide 26.7 mEq/L (21.0-31.0) 05/01/18 04:48 Anion Gap 12.2 (7.0-16.0) 05/01/18 04:48 BUN 22 mg/dL (7-25) 05/01/18 04:48 Creatinine 0.9 mg/dL (0.6-1.2) 05/01/18 04:48 Est GFR ( Amer) > 60.0 ml/min (>90) 05/01/18 04:48 Est GFR (Non-Af Amer) > 60.0 ml/min 05/01/18 04:48 BUN/Creatinine Ratio 24.4 05/01/18 04:48 Glucose 97 mg/dL (70-105) 05/01/18 04:48 Whole Bld Lactic Acid 1.60 mmol/L (0.60-1.99) 04/29/18 13:35 Calcium 9.3 mg/dL (8.6-10.3) 05/01/18 04:48 Phosphorus 4.1 mg/dL (2.5-5.0) 04/29/18 13:35 Magnesium 2.0 mg/dL (1.9-2.7) 04/29/18 13:35 Iron 16 ug/dL (27-139) L 05/01/18 04:48 TIBC 213 ug/dL (250-450) L 05/01/18 04:48 Iron Saturation 8 % (15-55) L 05/01/18 04:48 Unsaturated IBC 197 ug/dL (118-369) 05/01/18 04:48 Ferritin 340 ng/mL (15-150) H 05/01/18 04:48 Total Bilirubin 0.3 mg/dL (0.3-1.0) 05/01/18 04:48 AST 10 U/L (13-39) L 05/01/18 04:48 ALT 9 U/L (7-52) 05/01/18 04:48 Alkaline Phosphatase 101 U/L (34-104) 05/01/18 04:48 Ammonia 42 umol/L (16-53) 05/01/18 04:48 Total Protein 6.6 gm/dL (6.0-8.3) 05/01/18 04:48 Albumin 3.4 gm/dL (3.7-5.3) L 05/01/18 04:48 Globulin 3.2 gm/dL 05/01/18 04:48 Albumin/Globulin Ratio 1.1 (1.0-1.8) 05/01/18 04:48 Tumor Marker AFP 1.5 ng/mL (0.0-8.3) 04/30/18 04:45 Carcinoembryonic Ag 4.1 ng/mL (0.0-4.7) 05/01/18 04:48 CA 19-9 Antigen 41 U/mL (0-35) H 05/01/18 04:48 Vitamin B12 635 pg/mL (232-1245) 05/01/18 04:48 Folic Acid >20.0 ng/mL (>3.0) 05/01/18 04:48 TSH 0.80 uIU/ml (0.34-5.60) 05/01/18 04:48 Urine Source CLEAN C 04/29/18 14:00 Urine Color YELLOW 04/29/18 14:00 Urine Clarity CLEAR (CLEAR) 04/29/18 14:00 Urine pH 6.0 (4.6 - 8.0) 04/29/18 14:00 Ur Specific [place] 1.015 (1.005-1.030) 04/29/18 14:00 Urine Protein NEGATIVE mg/dL (NEGATIVE) 04/29/18 14:00 Urine Glucose (UA) NEGATIVE mg/dL (NEGATIVE) 04/29/18 14:00 Urine Ketones NEGATIVE mg/dL (NEGATIVE) 04/29/18 14:00 Urine Blood NEGATIVE (NEGATIVE) 04/29/18 14:00 Urine Nitrate NEGATIVE (NEGATIVE) 04/29/18 14:00 Urine Bilirubin NEGATIVE (NEGATIVE) 04/29/18 14:00 Urine Urobilinogen 0.2 E.U./dL (0.2 - 1.0) 04/29/18 14:00 Ur Leukocyte Esterase NEGATIVE (NEGATIVE) 04/29/18 14:00 Urine RBC NONE SEEN /hpf (0-5) 04/29/18 14:00 Urine WBC 0-2 /hpf (0-5) 04/29/18 14:00 Ur Epithelial Cells FEW /lpf (FEW) 04/29/18 14:00 Urine Bacteria FEW /hpf (NONE SEEN) 04/29/18 14:00 Urine Opiates Screen POSITIVE (NEGATIVE) H 04/29/18 14:00 Urine Methadone Screen NEGATIVE (NEGATIVE) 04/29/18 14:00 Ur Barbiturates Screen NEGATIVE (NEGATIVE) 04/29/18 14:00 Ur Tricyclics Screen NEGATIVE (NEGATIVE) 04/29/18 14:00 Ur Phencyclidine Scrn NEGATIVE (NEGATIVE) 04/29/18 14:00 Amphetamines Screen NEGATIVE (NEGATIVE) 04/29/18 14:00 U Methamphetamines Scrn NEGATIVE (NEGATIVE) 04/29/18 14:00 U Benzodiazepines Scrn NEGATIVE (NEGATIVE) 04/29/18 14:00 U Cocaine Metab Screen NEGATIVE (NEGATIVE) 04/29/18 14:00 U Cannabinoids Screen NEGATIVE (NEGATIVE) 04/29/18 14:00 Influenza A (Rapid) NEG FOR INF A 04/29/18 14:00 Influenza B (Rapid) NEG FOR INF B 04/29/18 14:00 - Physical Exam Vitals and I&O: Vital Signs Temp 97.7 F 05/02/18 11:59 Pulse 93 05/02/18 12:48 Resp 18 05/02/18 12:48 BP 134/63 05/02/18 11:59 Pulse Ox 96 05/02/18 12:48 Intake & Output 05/01/18 05/02/18 05/02/18 18:59 06:59 18:59 Intake Total 100 1250 Balance 100 1250 Weight (lbs) 52.163 kg Intake: Intake, IV Amount 100 1100 Piperacillin Sodium/ 100 100 Tazobact 2.25 gm In Sodium Chloride 0.9% 50 ml @ 100 mls/hr IV Q6H [facility] Rx#:[id number] Sodium Chloride 0.9% 1, 1000 000 ml @ 100 mls/hr IV . Q10H [facility] Rx#:[id number] Oral 150 Other: # Voids 3 # Bowel Movements 0 Weight Source Bedscale Active Medications: Current Medications Acetaminophen (Tylenol Extra Strength) 500 mg PO Q4H PRN PRN Reason: Fever >101 Stop: 06/28/18 22:01 Acetaminophen/Hydrocodone Bitart ([place] 10 Mg/325 Mg) 1 tab PO Q6H PRN PRN Reason: Pain (Severe) Stop: 06/28/18 22:01 Last Admin: 05/02/18 10:25 Dose: 1 tab Albuterol/Ipratropium (Duoneb Neb) 3 ml HHN Q6HRT [facility] Stop: 06/29/18 00:59 Last Admin: 05/02/18 12:48 Dose: 3 ml Albuterol/Ipratropium (Duoneb Neb) 3 ml HHN Q2H PRN PRN Reason: Wheezing Stop: 06/28/18 22:01 Budesonide (Pulmicort) 0.5 mg HHN BIDRT [facility] Stop: 06/29/18 18:59 Last Admin: 05/02/18 08:17 Dose: Not Given Sodium Chloride (Nacl 0.9%) 1,000 mls @ 100 mls/hr IV .Q10H [facility] Stop: 06/28/18 22:01 Last Admin: 05/02/18 04:22 Dose: 100 mls/hr Piperacillin Sod/Tazobactam (Sod 2.25 gm/ Sodium Chloride) 50 mls @ 100 mls/hr IV Q6H [facility]; Protocol Stop: 06/28/18 22:44 Last Admin: 05/02/18 09:57 Dose: 100 mls/hr Nicotine (Nicotine Transdermal System) 21 mg TD DAILY@2000 [facility] Stop: 06/29/18 19:59 Last Admin: 05/01/18 22:18 Dose: 21 mg Ondansetron HCl (Zofran) 4 mg IV Q6H PRN PRN Reason: Nausea / Vomiting Stop: 06/28/18 22:01 General: no acute distress, well developed, well nourished HEENT: atraumatic, normocephalic, PERRLA Neck: supple, no thyromegaly Cardiovascular: S1S2, regular Lungs: clear to auscultation bilaterally, clear to percussion Abdomen: soft, no tender, no distended Extremities: no cyanosis, no clubbing, no edema Neurological: other (Confused.) Infectious Disease Assmt/Plan - Assessment Assessment: 1. Hypotension and fever, may have sepsis. resolved. 2. Right forehead hematoma versus cellulitis or abscess. 3. Chronic hepatitis C. 4. Chronic pain syndrome. 5. Hyperlipidemia. 6. Dementia. 7. Chronic obstructive pulmonary disease. 8. Anemia. - Plan Plan: Continue the same treatment.
--- NOTE | 2018-05-02 17:58 | General Progress Note ---
Subjective - Review of Systems Service Date: 05/01/18 Subjective: Patient doing ok no new complaints reported Objective - Results Result Diagrams: 05/01/18 04:48 05/01/18 04:48 Recent Labs: Laboratory Last Values WBC 4.8 Th/cmm (4.8-10.8) 05/01/18 04:48 RBC 2.75 Mil/cmm (3.80-5.20) L 05/01/18 04:48 Hgb 7.8 gm/dL (12-16) L* 05/01/18 04:48 Hct 23.8 % (41.0-60) L 05/01/18 04:48 MCV 86.4 fl (81-100) 05/01/18 04:48 MCH 28.3 pg (27.0-31.0) 05/01/18 04:48 MCHC Differential 32.7 pg (28.0-36.0) 05/01/18 04:48 RDW 12.3 % (11.5-20.0) 05/01/18 04:48 Plt Count 178 Th/cmm (150-400) 05/01/18 04:48 MPV 7.2 fl 05/01/18 04:48 Add Manual Diff YES 04/29/18 13:35 Neutrophils % 58.3 % (40.0-80.0) 05/01/18 04:48 Band Neutrophils % 0 % (0-10) 04/29/18 13:35 Lymphocytes % 21.3 % (20.0-50.0) 05/01/18 04:48 Monocytes % 11.5 % (2.0-10.0) H 05/01/18 04:48 Eosinophils % 8.2 % (0.0-5.0) H 05/01/18 04:48 Basophils % 0.7 % (0.0-2.0) 05/01/18 04:48 Neutrophils (Manual) 69 % (40-80) 04/29/18 13:35 Lymphocytes 18 % (20-50) L 04/29/18 13:35 Monocytes 10 % (2-10) 04/29/18 13:35 Eosinophils 3 % (0-5) 04/29/18 13:35 Basophils 0 % (0-3) 04/29/18 13:35 Sodium 142 mEq/L (136-145) 05/01/18 04:48 Potassium 3.9 mEq/L (3.5-5.1) 05/01/18 04:48 Chloride 107 mEq/L (98-107) 05/01/18 04:48 Carbon Dioxide 26.7 mEq/L (21.0-31.0) 05/01/18 04:48 Anion Gap 12.2 (7.0-16.0) 05/01/18 04:48 BUN 22 mg/dL (7-25) 05/01/18 04:48 Creatinine 0.9 mg/dL (0.6-1.2) 05/01/18 04:48 Est GFR ( Amer) > 60.0 ml/min (>90) 05/01/18 04:48 Est GFR (Non-Af Amer) > 60.0 ml/min 05/01/18 04:48 BUN/Creatinine Ratio 24.4 05/01/18 04:48 Glucose 97 mg/dL (70-105) 05/01/18 04:48 Whole Bld Lactic Acid 1.60 mmol/L (0.60-1.99) 04/29/18 13:35 Calcium 9.3 mg/dL (8.6-10.3) 05/01/18 04:48 Phosphorus 4.1 mg/dL (2.5-5.0) 04/29/18 13:35 Magnesium 2.0 mg/dL (1.9-2.7) 04/29/18 13:35 Iron 16 ug/dL (27-139) L 05/01/18 04:48 TIBC 213 ug/dL (250-450) L 05/01/18 04:48 Iron Saturation 8 % (15-55) L 05/01/18 04:48 Unsaturated IBC 197 ug/dL (118-369) 05/01/18 04:48 Ferritin 340 ng/mL (15-150) H 05/01/18 04:48 Total Bilirubin 0.3 mg/dL (0.3-1.0) 05/01/18 04:48 AST 10 U/L (13-39) L 05/01/18 04:48 ALT 9 U/L (7-52) 05/01/18 04:48 Alkaline Phosphatase 101 U/L (34-104) 05/01/18 04:48 Ammonia 42 umol/L (16-53) 05/01/18 04:48 Total Protein 6.6 gm/dL (6.0-8.3) 05/01/18 04:48 Albumin 3.4 gm/dL (3.7-5.3) L 05/01/18 04:48 Globulin 3.2 gm/dL 05/01/18 04:48 Albumin/Globulin Ratio 1.1 (1.0-1.8) 05/01/18 04:48 Tumor Marker AFP 1.5 ng/mL (0.0-8.3) 04/30/18 04:45 Carcinoembryonic Ag 4.1 ng/mL (0.0-4.7) 05/01/18 04:48 CA 19-9 Antigen 41 U/mL (0-35) H 05/01/18 04:48 Vitamin B12 635 pg/mL (232-1245) 05/01/18 04:48 Folic Acid >20.0 ng/mL (>3.0) 05/01/18 04:48 TSH 0.80 uIU/ml (0.34-5.60) 05/01/18 04:48 Urine Source CLEAN C 04/29/18 14:00 Urine Color YELLOW 04/29/18 14:00 Urine Clarity CLEAR (CLEAR) 04/29/18 14:00 Urine pH 6.0 (4.6 - 8.0) 04/29/18 14:00 Ur Specific [place] 1.015 (1.005-1.030) 04/29/18 14:00 Urine Protein NEGATIVE mg/dL (NEGATIVE) 04/29/18 14:00 Urine Glucose (UA) NEGATIVE mg/dL (NEGATIVE) 04/29/18 14:00 Urine Ketones NEGATIVE mg/dL (NEGATIVE) 04/29/18 14:00 Urine Blood NEGATIVE (NEGATIVE) 04/29/18 14:00 Urine Nitrate NEGATIVE (NEGATIVE) 04/29/18 14:00 Urine Bilirubin NEGATIVE (NEGATIVE) 04/29/18 14:00 Urine Urobilinogen 0.2 E.U./dL (0.2 - 1.0) 04/29/18 14:00 Ur Leukocyte Esterase NEGATIVE (NEGATIVE) 04/29/18 14:00 Urine RBC NONE SEEN /hpf (0-5) 04/29/18 14:00 Urine WBC 0-2 /hpf (0-5) 04/29/18 14:00 Ur Epithelial Cells FEW /lpf (FEW) 04/29/18 14:00 Urine Bacteria FEW /hpf (NONE SEEN) 04/29/18 14:00 Urine Opiates Screen POSITIVE (NEGATIVE) H 04/29/18 14:00 Urine Methadone Screen NEGATIVE (NEGATIVE) 04/29/18 14:00 Ur Barbiturates Screen NEGATIVE (NEGATIVE) 04/29/18 14:00 Ur Tricyclics Screen NEGATIVE (NEGATIVE) 04/29/18 14:00 Ur Phencyclidine Scrn NEGATIVE (NEGATIVE) 04/29/18 14:00 Amphetamines Screen NEGATIVE (NEGATIVE) 04/29/18 14:00 U Methamphetamines Scrn NEGATIVE (NEGATIVE) 04/29/18 14:00 U Benzodiazepines Scrn NEGATIVE (NEGATIVE) 04/29/18 14:00 U Cocaine Metab Screen NEGATIVE (NEGATIVE) 04/29/18 14:00 U Cannabinoids Screen NEGATIVE (NEGATIVE) 04/29/18 14:00 Influenza A (Rapid) NEG FOR INF A 04/29/18 14:00 Influenza B (Rapid) NEG FOR INF B 04/29/18 14:00 - Physical Exam Vitals and I&O: Vital Signs Temp 97.9 F 05/02/18 16:00 Pulse 95 05/02/18 16:00 Resp 18 05/02/18 16:00 BP 127/52 05/02/18 16:00 Pulse Ox 96 05/02/18 16:00 Intake & Output 05/01/18 05/02/18 05/02/18 18:59 06:59 18:59 Intake Total 100 1250 1050 Balance 100 1250 1050 Weight (lbs) 52.163 kg Intake: Intake, IV Amount 100 1100 1050 Piperacillin Sodium/ 100 100 50 Tazobact 2.25 gm In Sodium Chloride 0.9% 50 ml @ 100 mls/hr IV Q6H [facility] Rx#:[id number] Sodium Chloride 0.9% 1, 1000 1000 000 ml @ 100 mls/hr IV . Q10H [facility] Rx#:[id number] Oral 150 Other: # Voids 3 # Bowel Movements 0 Weight Source Bedscale Active Medications: Current Medications Acetaminophen (Tylenol Extra Strength) 500 mg PO Q4H PRN PRN Reason: Fever >101 Stop: 06/28/18 22:01 Acetaminophen/Hydrocodone Bitart ([place] 10 Mg/325 Mg) 1 tab PO Q6H PRN PRN Reason: Pain (Severe) Stop: 06/28/18 22:01 Last Admin: 05/02/18 15:39 Dose: 1 tab Albuterol/Ipratropium (Duoneb Neb) 3 ml HHN Q6HRT [facility] Stop: 06/29/18 00:59 Last Admin: 05/02/18 12:48 Dose: 3 ml Albuterol/Ipratropium (Duoneb Neb) 3 ml HHN Q2H PRN PRN Reason: Wheezing Stop: 06/28/18 22:01 Budesonide (Pulmicort) 0.5 mg HHN BIDRT [facility] Stop: 06/29/18 18:59 Last Admin: 05/02/18 08:17 Dose: Not Given Sodium Chloride (Nacl 0.9%) 1,000 mls @ 100 mls/hr IV .Q10H [facility] Stop: 06/28/18 22:01 Last Admin: 05/02/18 16:29 Dose: 100 mls/hr Piperacillin Sod/Tazobactam (Sod 2.25 gm/ Sodium Chloride) 50 mls @ 100 mls/hr IV Q6H [facility]; Protocol Stop: 06/28/18 22:44 Last Admin: 05/02/18 16:16 Dose: 100 mls/hr Nicotine (Nicotine Transdermal System) 21 mg TD DAILY@2000 [facility] Stop: 06/29/18 19:59 Last Admin: 05/01/18 22:18 Dose: 21 mg Ondansetron HCl (Zofran) 4 mg IV Q6H PRN PRN Reason: Nausea / Vomiting Stop: 06/28/18 22:01 General: Alert Cardiovascular: Regular rate Lungs: Other (rales) Abdomen: Soft, Other (sacral decube ulcer) Assessment/Plan - Assessment Assessment: Acute bronchitis COPD Stage II sacro coccygeal decubitus wound Anemia thyroid nodule - Plan Plan: Monitor HH Stool OB Out patient FNAB for thyroid nodule Antibiotics Nicotine patch PT OT [place] prn
--- NOTE | 2018-05-02 19:58 | Progress Notes ---
DATE: 05/01/2018 PULMONARY PROGRESS NOTE PROBLEM LIST: 1. Advanced COPD. 2. Shortness of breath, mild degree of tracheobronchitis. 3. Severe peripheral neuropathy. SYMPTOMS: Nil, feeling okay, still complains very minimal coughing, and pain in the abdomen. PHYSICAL EXAMINATION: VITAL SIGNS: The patient is afebrile, blood pressure 120/70, saturation is in mid 90s to high 90s on room air. NECK: Veins not visualized. CHEST: Shows diminished air entry with occasional scattered rhonchi. HEART: Regular. ABDOMEN: Soft, nontender. LABORATORY DATA: The patient's CT of the chest consistent with COPD with some fibrotic changes at the bases. IMPRESSION: The patient is clinically stable, slightly better than yesterday. PLANS AND SUGGESTIONS: Continue current respiratory care, inhalation treatment, et cetera. Septic workup is in progress and go from there. JOB# [id number]
--- NOTE | 2018-05-02 20:06 | Progress Notes ---
DATE: 05/02/2018 PULMONARY PROGRESS NOTE PROBLEM LIST: 1. Advanced COPD. 2. Mild exacerbation. 3. Malnutrition. 4. History of multiple falls. 5. History of peripheral neuropathy. SYMPTOMS: Nil. She is feeling okay. She says her breathing problems are almost back to normal. She is not smoking. PHYSICAL EXAMINATION: VITAL SIGNS: T-max is 97.7, blood pressure is 127/52, respirations 18, and saturation is 96% on room air. NECK: Veins not visualized. CHEST: Shows diminished air entry with occasional rhonchi. HEART: Regular. ABDOMEN: Soft, nontender. LABORATORY DATA: White count is 4.8 and hemoglobin is 7.8. Electrolytes are okay. ASSESSMENT: 1. The patient clinically appears to be stable respiratory sr with advanced chronic obstructive pulmonary disease with some scarring. 2. Anemia, etiology to be determined with significant peripheral neuropathy. PLANS AND SUGGESTIONS: Continue current respiratory care, inhalation treatment, etc. Agree with ____. JOB# [id number]
[2018-05-02] MEDS: Nicotine 21 mg/24 hr Tdm TD SCH (20:49)
--- NOTE | 2018-05-02 22:25 | General Progress Note ---
Subjective - Review of Systems Service Date: 05/02/18 Subjective: Patient doing ok wants to go home Objective - Results Result Diagrams: 05/01/18 04:48 05/01/18 04:48 Recent Labs: Laboratory Last Values WBC 4.8 Th/cmm (4.8-10.8) 05/01/18 04:48 RBC 2.75 Mil/cmm (3.80-5.20) L 05/01/18 04:48 Hgb 7.8 gm/dL (12-16) L* 05/01/18 04:48 Hct 23.8 % (41.0-60) L 05/01/18 04:48 MCV 86.4 fl (81-100) 05/01/18 04:48 MCH 28.3 pg (27.0-31.0) 05/01/18 04:48 MCHC Differential 32.7 pg (28.0-36.0) 05/01/18 04:48 RDW 12.3 % (11.5-20.0) 05/01/18 04:48 Plt Count 178 Th/cmm (150-400) 05/01/18 04:48 MPV 7.2 fl 05/01/18 04:48 Add Manual Diff YES 04/29/18 13:35 Neutrophils % 58.3 % (40.0-80.0) 05/01/18 04:48 Band Neutrophils % 0 % (0-10) 04/29/18 13:35 Lymphocytes % 21.3 % (20.0-50.0) 05/01/18 04:48 Monocytes % 11.5 % (2.0-10.0) H 05/01/18 04:48 Eosinophils % 8.2 % (0.0-5.0) H 05/01/18 04:48 Basophils % 0.7 % (0.0-2.0) 05/01/18 04:48 Neutrophils (Manual) 69 % (40-80) 04/29/18 13:35 Lymphocytes 18 % (20-50) L 04/29/18 13:35 Monocytes 10 % (2-10) 04/29/18 13:35 Eosinophils 3 % (0-5) 04/29/18 13:35 Basophils 0 % (0-3) 04/29/18 13:35 Sodium 142 mEq/L (136-145) 05/01/18 04:48 Potassium 3.9 mEq/L (3.5-5.1) 05/01/18 04:48 Chloride 107 mEq/L (98-107) 05/01/18 04:48 Carbon Dioxide 26.7 mEq/L (21.0-31.0) 05/01/18 04:48 Anion Gap 12.2 (7.0-16.0) 05/01/18 04:48 BUN 22 mg/dL (7-25) 05/01/18 04:48 Creatinine 0.9 mg/dL (0.6-1.2) 05/01/18 04:48 Est GFR ( Amer) > 60.0 ml/min (>90) 05/01/18 04:48 Est GFR (Non-Af Amer) > 60.0 ml/min 05/01/18 04:48 BUN/Creatinine Ratio 24.4 05/01/18 04:48 Glucose 97 mg/dL (70-105) 05/01/18 04:48 Whole Bld Lactic Acid 1.60 mmol/L (0.60-1.99) 04/29/18 13:35 Calcium 9.3 mg/dL (8.6-10.3) 05/01/18 04:48 Phosphorus 4.1 mg/dL (2.5-5.0) 04/29/18 13:35 Magnesium 2.0 mg/dL (1.9-2.7) 04/29/18 13:35 Iron 16 ug/dL (27-139) L 05/01/18 04:48 TIBC 213 ug/dL (250-450) L 05/01/18 04:48 Iron Saturation 8 % (15-55) L 05/01/18 04:48 Unsaturated IBC 197 ug/dL (118-369) 05/01/18 04:48 Ferritin 340 ng/mL (15-150) H 05/01/18 04:48 Total Bilirubin 0.3 mg/dL (0.3-1.0) 05/01/18 04:48 AST 10 U/L (13-39) L 05/01/18 04:48 ALT 9 U/L (7-52) 05/01/18 04:48 Alkaline Phosphatase 101 U/L (34-104) 05/01/18 04:48 Ammonia 42 umol/L (16-53) 05/01/18 04:48 Total Protein 6.6 gm/dL (6.0-8.3) 05/01/18 04:48 Albumin 3.4 gm/dL (3.7-5.3) L 05/01/18 04:48 Globulin 3.2 gm/dL 05/01/18 04:48 Albumin/Globulin Ratio 1.1 (1.0-1.8) 05/01/18 04:48 Tumor Marker AFP 1.5 ng/mL (0.0-8.3) 04/30/18 04:45 Carcinoembryonic Ag 4.1 ng/mL (0.0-4.7) 05/01/18 04:48 CA 19-9 Antigen 41 U/mL (0-35) H 05/01/18 04:48 Vitamin B12 635 pg/mL (232-1245) 05/01/18 04:48 Folic Acid >20.0 ng/mL (>3.0) 05/01/18 04:48 TSH 0.80 uIU/ml (0.34-5.60) 05/01/18 04:48 Urine Source CLEAN C 04/29/18 14:00 Urine Color YELLOW 04/29/18 14:00 Urine Clarity CLEAR (CLEAR) 04/29/18 14:00 Urine pH 6.0 (4.6 - 8.0) 04/29/18 14:00 Ur Specific [place] 1.015 (1.005-1.030) 04/29/18 14:00 Urine Protein NEGATIVE mg/dL (NEGATIVE) 04/29/18 14:00 Urine Glucose (UA) NEGATIVE mg/dL (NEGATIVE) 04/29/18 14:00 Urine Ketones NEGATIVE mg/dL (NEGATIVE) 04/29/18 14:00 Urine Blood NEGATIVE (NEGATIVE) 04/29/18 14:00 Urine Nitrate NEGATIVE (NEGATIVE) 04/29/18 14:00 Urine Bilirubin NEGATIVE (NEGATIVE) 04/29/18 14:00 Urine Urobilinogen 0.2 E.U./dL (0.2 - 1.0) 04/29/18 14:00 Ur Leukocyte Esterase NEGATIVE (NEGATIVE) 04/29/18 14:00 Urine RBC NONE SEEN /hpf (0-5) 04/29/18 14:00 Urine WBC 0-2 /hpf (0-5) 04/29/18 14:00 Ur Epithelial Cells FEW /lpf (FEW) 04/29/18 14:00 Urine Bacteria FEW /hpf (NONE SEEN) 04/29/18 14:00 Urine Opiates Screen POSITIVE (NEGATIVE) H 04/29/18 14:00 Urine Methadone Screen NEGATIVE (NEGATIVE) 04/29/18 14:00 Ur Barbiturates Screen NEGATIVE (NEGATIVE) 04/29/18 14:00 Ur Tricyclics Screen NEGATIVE (NEGATIVE) 04/29/18 14:00 Ur Phencyclidine Scrn NEGATIVE (NEGATIVE) 04/29/18 14:00 Amphetamines Screen NEGATIVE (NEGATIVE) 04/29/18 14:00 U Methamphetamines Scrn NEGATIVE (NEGATIVE) 04/29/18 14:00 U Benzodiazepines Scrn NEGATIVE (NEGATIVE) 04/29/18 14:00 U Cocaine Metab Screen NEGATIVE (NEGATIVE) 04/29/18 14:00 U Cannabinoids Screen NEGATIVE (NEGATIVE) 04/29/18 14:00 Influenza A (Rapid) NEG FOR INF A 04/29/18 14:00 Influenza B (Rapid) NEG FOR INF B 04/29/18 14:00 - Physical Exam Vitals and I&O: Vital Signs Temp 97.4 F 05/02/18 20:00 Pulse 54 05/02/18 20:00 Resp 18 05/02/18 20:00 BP 100/51 05/02/18 20:00 Pulse Ox 98 05/02/18 20:00 Intake & Output 05/02/18 05/02/18 05/03/18 06:59 18:59 06:59 Intake Total 1250 1300 Balance 1250 1300 Weight (lbs) 52.163 kg 52.163 kg Intake: Intake, IV Amount 1100 1100 Piperacillin Sodium/ 100 100 Tazobact 2.25 gm In Sodium Chloride 0.9% 50 ml @ 100 mls/hr IV Q6H [facility] Rx#:[id number] Sodium Chloride 0.9% 1, 1000 1000 000 ml @ 100 mls/hr IV . Q10H [facility] Rx#:[id number] Oral 150 200 Other: # Voids 3 # Bowel Movements 0 Weight Source Bedscale Bedscale Active Medications: Current Medications Acetaminophen (Tylenol Extra Strength) 500 mg PO Q4H PRN PRN Reason: Fever >101 Stop: 06/28/18 22:01 Acetaminophen/Hydrocodone Bitart (Elizabeth 10 Mg/325 Mg) 1 tab PO Q6H PRN PRN Reason: Pain (Severe) Stop: 06/28/18 22:01 Last Admin: 05/02/18 22:10 Dose: 1 tab Albuterol/Ipratropium (Duoneb Neb) 3 ml HHN Q6HRT [facility] Stop: 06/29/18 00:59 Last Admin: 05/02/18 19:10 Dose: 3 ml Albuterol/Ipratropium (Duoneb Neb) 3 ml HHN Q2H PRN PRN Reason: Wheezing Stop: 06/28/18 22:01 Budesonide (Pulmicort) 0.5 mg HHN BIDRT [facility] Stop: 06/29/18 18:59 Last Admin: 05/02/18 19:11 Dose: 0.5 mg Sodium Chloride (Nacl 0.9%) 1,000 mls @ 100 mls/hr IV .Q10H [facility] Stop: 06/28/18 22:01 Last Admin: 05/02/18 16:29 Dose: 100 mls/hr Piperacillin Sod/Tazobactam (Sod 2.25 gm/ Sodium Chloride) 50 mls @ 100 mls/hr IV Q6H [facility]; Protocol Stop: 06/28/18 22:44 Last Admin: 05/02/18 22:11 Dose: 100 mls/hr Nicotine (Nicotine Transdermal System) 21 mg TD DAILY@2000 [facility] Stop: 06/29/18 19:59 Last Admin: 05/02/18 20:49 Dose: 21 mg Ondansetron HCl (Zofran) 4 mg IV Q6H PRN PRN Reason: Nausea / Vomiting Stop: 06/28/18 22:01 General: Alert Cardiovascular: Regular rate Lungs: Other (rales) Abdomen: Soft, Other (sacral decube ulcer) Neurological: Other (Bilateral lower ext weakness) Assessment/Plan - Assessment Assessment: Acute bronchitis COPD Stage II sacro coccygeal decubitus wound Anemia thyroid nodule Weakness - Plan Plan: Monitor HH Stool OB Out patient FNAB for thyroid nodule Antibiotics changed to rocephine Awaiting neuro input Frequent turning to avoid Bed sores Wound care Nicotine patch PT OT Elizabeth prn
[2018-05-03] MEDS: Albuterol/Ipratropium Neb 3 ML AERS HHN SCH ×4 (00:20→19:15)
[2018-05-03 06:33] LABS: % BASOPHILS 1.6 % (0.0-2.0); % EOSINOPHILS 10.8 % (0.0-5.0); % LYMPHOCYTES 27.6 % (20.0-50.0); % MONOCYTES 11.3 % (2.0-10.0); % NEUTROPHILS 48.7 % (40.0-80.0); BASOPHILE ABSOLUTE 0.1 Th/cumm (0-0.2); EOSINOPHILE ABSOLUTE 0.5 Th/cmm (0.1-0.4); HEMATOCRIT 24.2 % (41.0-60); HEMOGLOBIN 8.1 gm/dL (12-16); LYMPHOCYTE ABSOLUTE 1.2 Th/cmm (1.5-3.0); MEAN CELL VOLUME 85.9 fl (81-100); MEAN CORPUSCULAR HEMOGLOBIN 28.6 pg (27.0-31.0); MEAN CORPUSCULAR HGB CONC 33.3 pg (28.0-36.0); MEAN PLATELET VOLUME 7.5 fl; MONOCYTE ABSOLUTE 0.5 Th/cmm (0.3-1.0); NEUTROPHILE ABSOLUTE 2.1 Th/cmm (1.8-8.0); PLATELET COUNT 200 Th/cmm (150-400); RED BLOOD COUNT 2.81 Mil/cmm (3.80-5.20); RED CELL DISTRIBUTION WIDTH 12.3 % (11.5-20.0); WHITE BLOOD COUNT 4.4 Th/cmm (4.8-10.8)
[2018-05-03] MEDS: Budesonide 0.5 Mg/2 mL Ud HHN SCH ×2 (07:49→19:15)
[2018-05-03] MEDS: cefTRIAXone 1 GM in Sodium Chloride 0.9% 50 ML IV SCH (09:55)
[2018-05-03 10:09] LABS: CA 125 (OVARIAN) SEE REF. LAB REPORT
[2018-05-03] MEDS ORDERED: Probiotic Screen MC PRN (12:51)
[2018-05-03] MEDS: Hydrocodone/APAP 10 mg/325 mg Tab PO PRN ×2 (14:40→23:08)
--- NOTE | 2018-05-03 14:52 | General Progress Note ---
Subjective - Review of Systems Service Date: 05/03/18 Subjective: no new sxs Objective - Results Result Diagrams: 05/03/18 04:55 05/01/18 04:48 Recent Labs: Laboratory Last Values WBC 4.4 Th/cmm (4.8-10.8) L 05/03/18 04:55 RBC 2.81 Mil/cmm (3.80-5.20) L 05/03/18 04:55 Hgb 8.1 gm/dL (12-16) L 05/03/18 04:55 Hct 24.2 % (41.0-60) L 05/03/18 04:55 MCV 85.9 fl (81-100) 05/03/18 04:55 MCH 28.6 pg (27.0-31.0) 05/03/18 04:55 MCHC Differential 33.3 pg (28.0-36.0) 05/03/18 04:55 RDW 12.3 % (11.5-20.0) 05/03/18 04:55 Plt Count 200 Th/cmm (150-400) 05/03/18 04:55 MPV 7.5 fl 05/03/18 04:55 Add Manual Diff YES 04/29/18 13:35 Neutrophils % 48.7 % (40.0-80.0) 05/03/18 04:55 Band Neutrophils % 0 % (0-10) 04/29/18 13:35 Lymphocytes % 27.6 % (20.0-50.0) 05/03/18 04:55 Monocytes % 11.3 % (2.0-10.0) H 05/03/18 04:55 Eosinophils % 10.8 % (0.0-5.0) H 05/03/18 04:55 Basophils % 1.6 % (0.0-2.0) 05/03/18 04:55 Neutrophils (Manual) 69 % (40-80) 04/29/18 13:35 Lymphocytes 18 % (20-50) L 04/29/18 13:35 Monocytes 10 % (2-10) 04/29/18 13:35 Eosinophils 3 % (0-5) 04/29/18 13:35 Basophils 0 % (0-3) 04/29/18 13:35 Sodium 142 mEq/L (136-145) 05/01/18 04:48 Potassium 3.9 mEq/L (3.5-5.1) 05/01/18 04:48 Chloride 107 mEq/L (98-107) 05/01/18 04:48 Carbon Dioxide 26.7 mEq/L (21.0-31.0) 05/01/18 04:48 Anion Gap 12.2 (7.0-16.0) 05/01/18 04:48 BUN 22 mg/dL (7-25) 05/01/18 04:48 Creatinine 0.9 mg/dL (0.6-1.2) 05/01/18 04:48 Est GFR ( Amer) > 60.0 ml/min (>90) 05/01/18 04:48 Est GFR (Non-Af Amer) > 60.0 ml/min 05/01/18 04:48 BUN/Creatinine Ratio 24.4 05/01/18 04:48 Glucose 97 mg/dL (70-105) 05/01/18 04:48 Whole Bld Lactic Acid 1.60 mmol/L (0.60-1.99) 04/29/18 13:35 Calcium 9.3 mg/dL (8.6-10.3) 05/01/18 04:48 Phosphorus 4.1 mg/dL (2.5-5.0) 04/29/18 13:35 Magnesium 2.0 mg/dL (1.9-2.7) 04/29/18 13:35 Iron 16 ug/dL (27-139) L 05/01/18 04:48 TIBC 213 ug/dL (250-450) L 05/01/18 04:48 Iron Saturation 8 % (15-55) L 05/01/18 04:48 Unsaturated IBC 197 ug/dL (118-369) 05/01/18 04:48 Ferritin 340 ng/mL (15-150) H 05/01/18 04:48 Total Bilirubin 0.3 mg/dL (0.3-1.0) 05/01/18 04:48 AST 10 U/L (13-39) L 05/01/18 04:48 ALT 9 U/L (7-52) 05/01/18 04:48 Alkaline Phosphatase 101 U/L (34-104) 05/01/18 04:48 Ammonia 42 umol/L (16-53) 05/01/18 04:48 Total Protein 6.6 gm/dL (6.0-8.3) 05/01/18 04:48 Albumin 3.4 gm/dL (3.7-5.3) L 05/01/18 04:48 Globulin 3.2 gm/dL 05/01/18 04:48 Albumin/Globulin Ratio 1.1 (1.0-1.8) 05/01/18 04:48 Tumor Marker AFP 1.5 ng/mL (0.0-8.3) 04/30/18 04:45 Carcinoembryonic Ag 4.1 ng/mL (0.0-4.7) 05/01/18 04:48 CA 19-9 Antigen 41 U/mL (0-35) H 05/01/18 04:48 CA 125 Antigen SEE REF. LAB REPORT 05/01/18 04:48 Vitamin B12 635 pg/mL (232-1245) 05/01/18 04:48 Folic Acid >20.0 ng/mL (>3.0) 05/01/18 04:48 TSH 0.80 uIU/ml (0.34-5.60) 05/01/18 04:48 Urine Source CLEAN C 04/29/18 14:00 Urine Color YELLOW 04/29/18 14:00 Urine Clarity CLEAR (CLEAR) 04/29/18 14:00 Urine pH 6.0 (4.6 - 8.0) 04/29/18 14:00 Ur Specific [place] 1.015 (1.005-1.030) 04/29/18 14:00 Urine Protein NEGATIVE mg/dL (NEGATIVE) 04/29/18 14:00 Urine Glucose (UA) NEGATIVE mg/dL (NEGATIVE) 04/29/18 14:00 Urine Ketones NEGATIVE mg/dL (NEGATIVE) 04/29/18 14:00 Urine Blood NEGATIVE (NEGATIVE) 04/29/18 14:00 Urine Nitrate NEGATIVE (NEGATIVE) 04/29/18 14:00 Urine Bilirubin NEGATIVE (NEGATIVE) 04/29/18 14:00 Urine Urobilinogen 0.2 E.U./dL (0.2 - 1.0) 04/29/18 14:00 Ur Leukocyte Esterase NEGATIVE (NEGATIVE) 04/29/18 14:00 Urine RBC NONE SEEN /hpf (0-5) 04/29/18 14:00 Urine WBC 0-2 /hpf (0-5) 04/29/18 14:00 Ur Epithelial Cells FEW /lpf (FEW) 04/29/18 14:00 Urine Bacteria FEW /hpf (NONE SEEN) 04/29/18 14:00 Urine Opiates Screen POSITIVE (NEGATIVE) H 04/29/18 14:00 Urine Methadone Screen NEGATIVE (NEGATIVE) 04/29/18 14:00 Ur Barbiturates Screen NEGATIVE (NEGATIVE) 04/29/18 14:00 Ur Tricyclics Screen NEGATIVE (NEGATIVE) 04/29/18 14:00 Ur Phencyclidine Scrn NEGATIVE (NEGATIVE) 04/29/18 14:00 Amphetamines Screen NEGATIVE (NEGATIVE) 04/29/18 14:00 U Methamphetamines Scrn NEGATIVE (NEGATIVE) 04/29/18 14:00 U Benzodiazepines Scrn NEGATIVE (NEGATIVE) 04/29/18 14:00 U Cocaine Metab Screen NEGATIVE (NEGATIVE) 04/29/18 14:00 U Cannabinoids Screen NEGATIVE (NEGATIVE) 04/29/18 14:00 Thyroglobulin Antibody SEE REF. LAB REPORT 05/01/18 04:48 Influenza A (Rapid) NEG FOR INF A 04/29/18 14:00 Influenza B (Rapid) NEG FOR INF B 04/29/18 14:00 - Physical Exam Vitals and I&O: Vital Signs Temp 97.6 F 05/03/18 11:33 Pulse 86 05/03/18 13:47 Resp 18 05/03/18 13:47 BP 124/56 05/03/18 11:33 Pulse Ox 97 05/03/18 13:47 Intake & Output 05/02/18 05/03/18 05/03/18 18:59 06:59 18:59 Intake Total 1300 50 Balance 1300 50 Weight (lbs) 52.163 kg 52.163 kg Intake: Intake, IV Amount 1100 50 Piperacillin Sodium/ 100 Tazobact 2.25 gm In Sodium Chloride 0.9% 50 ml @ 100 mls/hr IV Q6H [facility] Rx#:[id number] Sodium Chloride 0.9% 1, 1000 000 ml @ 100 mls/hr IV . Q10H [facility] Rx#:[id number] cefTRIAXone 1 gm In 50 Sodium Chloride 0.9% 50 ml @ 100 mls/hr IV Q24HR [facility] Rx#:[id number] Oral 200 Other: # Voids 1 # Bowel Movements 0 Stool Characteristics Formed Formed Weight Source Bedscale Bedscale Active Medications: Current Medications Acetaminophen (Tylenol Extra Strength) 500 mg PO Q4H PRN PRN Reason: Fever >101 Stop: 06/28/18 22:01 Acetaminophen/Hydrocodone Bitart ([place] 10 Mg/325 Mg) 1 tab PO Q6H PRN PRN Reason: Pain (Severe) Stop: 06/28/18 22:01 Last Admin: 05/03/18 14:40 Dose: 1 tab Albuterol/Ipratropium (Duoneb Neb) 3 ml HHN Q6HRT [facility] Stop: 06/29/18 00:59 Last Admin: 05/03/18 13:47 Dose: 3 ml Albuterol/Ipratropium (Duoneb Neb) 3 ml HHN Q2H PRN PRN Reason: Wheezing Stop: 06/28/18 22:01 Budesonide (Pulmicort) 0.5 mg HHN BIDRT [facility] Stop: 06/29/18 18:59 Last Admin: 05/03/18 07:49 Dose: 0.5 mg Sodium Chloride (Nacl 0.9%) 1,000 mls @ 100 mls/hr IV .Q10H [facility] Stop: 06/28/18 22:01 Last Admin: 05/02/18 16:29 Dose: 100 mls/hr Ceftriaxone Sodium 1 gm/ (Sodium Chloride) 50 mls @ 100 mls/hr IV Q24HR [facility] Stop: 07/02/18 08:59 Last Infusion: 05/03/18 10:30 Dose: Infused Lactobacillus Rhamnosus (Culturelle 15b) 1 each PO DAILY [facility] Stop: 07/03/18 08:59 Miscellaneous (Probiotic Screen) 1 ea MC PRN PRN PRN Reason: PROTOCOL Stop: 07/02/18 12:50 Nicotine (Nicotine Transdermal System) 21 mg TD DAILY@1999 [facility] Stop: 06/29/18 19:59 Last Admin: 05/02/18 20:49 Dose: 21 mg Ondansetron HCl (Zofran) 4 mg IV Q6H PRN PRN Reason: Nausea / Vomiting Stop: 06/28/18 22:01 General: Alert Cardiovascular: Regular rate Lungs: Other (rales) Abdomen: Soft, Other (sacral decube ulcer) Neurological: Other (Bilateral lower ext weakness) Assessment/Plan - Assessment Assessment: 1. Left thyroid cyst will be evaluated with fine needle aspiration for cytology. 2. Normocytic anemia with no clear evidence of bleeding. We will obtain comprehensive anemia workup, stool occult blood, iron studies, B12, and folate level and monitor hemoglobin with no transfusion for now since the patient is still asymptomatic. 05/03: SUSANA Wells who thinks the left thyroid mass is benign and no need for biopsy. Anemia mcneill suggestive of anemia of chronic disease. hgb stable. [id number]
--- NOTE | 2018-05-03 15:49 | Progress Notes ---
DATE: 05/03/2018 PROBLEM: 1. Acute exacerbation of chronic obstructive pulmonary disease. 2. Significant disability deconditioning with severe peripheral neuropathy. SYMPTOMS: Nil. Awaiting for transfer to [facility]. Breathing is okay. PHYSICAL EXAMINATION: VITAL SIGNS: T-max 97, blood pressure is 120/41, saturation 99 on room air. ENT: Shows no new changes. CHEST: Shows clear with diminished air entry. HEART: Regular. ABDOMEN: Soft, nontender. LABORATORY DATA: White count is 4400, hemoglobin is 8.1. ASSESSMENT AND PLAN: The patient is clinically stable, improving. Respiratory sr no new nature. PLANS AND SUGGESTIONS: Await for the patient's transfer to [facility], etc. and go from there. JOB# [id number]
[2018-05-03] MEDS: Sodium Chloride 0.9% 1,000 ML IV SCH (18:13)
[2018-05-03] MEDS: Nicotine 21 mg/24 hr Tdm TD SCH (20:08)
--- NOTE | 2018-05-03 20:25 | General Progress Note ---
Subjective - Review of Systems Service Date: 05/03/18 Subjective: Patient doing ok refused PT today c/o pain 10/26 on [place] Objective - Results Result Diagrams: 05/03/18 04:55 05/01/18 04:48 Recent Labs: Laboratory Last Values WBC 4.4 Th/cmm (4.8-10.8) L 05/03/18 04:55 RBC 2.81 Mil/cmm (3.80-5.20) L 05/03/18 04:55 Hgb 8.1 gm/dL (12-16) L 05/03/18 04:55 Hct 24.2 % (41.0-60) L 05/03/18 04:55 MCV 85.9 fl (81-100) 05/03/18 04:55 MCH 28.6 pg (27.0-31.0) 05/03/18 04:55 MCHC Differential 33.3 pg (28.0-36.0) 05/03/18 04:55 RDW 12.3 % (11.5-20.0) 05/03/18 04:55 Plt Count 200 Th/cmm (150-400) 05/03/18 04:55 MPV 7.5 fl 05/03/18 04:55 Add Manual Diff YES 04/29/18 13:35 Neutrophils % 48.7 % (40.0-80.0) 05/03/18 04:55 Band Neutrophils % 0 % (0-10) 04/29/18 13:35 Lymphocytes % 27.6 % (20.0-50.0) 05/03/18 04:55 Monocytes % 11.3 % (2.0-10.0) H 05/03/18 04:55 Eosinophils % 10.8 % (0.0-5.0) H 05/03/18 04:55 Basophils % 1.6 % (0.0-2.0) 05/03/18 04:55 Neutrophils (Manual) 69 % (40-80) 04/29/18 13:35 Lymphocytes 18 % (20-50) L 04/29/18 13:35 Monocytes 10 % (2-10) 04/29/18 13:35 Eosinophils 3 % (0-5) 04/29/18 13:35 Basophils 0 % (0-3) 04/29/18 13:35 Sodium 142 mEq/L (136-145) 05/01/18 04:48 Potassium 3.9 mEq/L (3.5-5.1) 05/01/18 04:48 Chloride 107 mEq/L (98-107) 05/01/18 04:48 Carbon Dioxide 26.7 mEq/L (21.0-31.0) 05/01/18 04:48 Anion Gap 12.2 (7.0-16.0) 05/01/18 04:48 BUN 22 mg/dL (7-25) 05/01/18 04:48 Creatinine 0.9 mg/dL (0.6-1.2) 05/01/18 04:48 Est GFR ( Amer) > 60.0 ml/min (>90) 05/01/18 04:48 Est GFR (Non-Af Amer) > 60.0 ml/min 05/01/18 04:48 BUN/Creatinine Ratio 24.4 05/01/18 04:48 Glucose 97 mg/dL (70-105) 05/01/18 04:48 Whole Bld Lactic Acid 1.60 mmol/L (0.60-1.99) 04/29/18 13:35 Calcium 9.3 mg/dL (8.6-10.3) 05/01/18 04:48 Phosphorus 4.1 mg/dL (2.5-5.0) 04/29/18 13:35 Magnesium 2.0 mg/dL (1.9-2.7) 04/29/18 13:35 Iron 16 ug/dL (27-139) L 05/01/18 04:48 TIBC 213 ug/dL (250-450) L 05/01/18 04:48 Iron Saturation 8 % (15-55) L 05/01/18 04:48 Unsaturated IBC 197 ug/dL (118-369) 05/01/18 04:48 Ferritin 340 ng/mL (15-150) H 05/01/18 04:48 Total Bilirubin 0.3 mg/dL (0.3-1.0) 05/01/18 04:48 AST 10 U/L (13-39) L 05/01/18 04:48 ALT 9 U/L (7-52) 05/01/18 04:48 Alkaline Phosphatase 101 U/L (34-104) 05/01/18 04:48 Ammonia 42 umol/L (16-53) 05/01/18 04:48 Total Protein 6.6 gm/dL (6.0-8.3) 05/01/18 04:48 Albumin 3.4 gm/dL (3.7-5.3) L 05/01/18 04:48 Globulin 3.2 gm/dL 05/01/18 04:48 Albumin/Globulin Ratio 1.1 (1.0-1.8) 05/01/18 04:48 Tumor Marker AFP 1.5 ng/mL (0.0-8.3) 04/30/18 04:45 Carcinoembryonic Ag 4.1 ng/mL (0.0-4.7) 05/01/18 04:48 CA 19-9 Antigen 41 U/mL (0-35) H 05/01/18 04:48 CA 125 Antigen SEE REF. LAB REPORT 05/01/18 04:48 Vitamin B12 635 pg/mL (232-1245) 05/01/18 04:48 Folic Acid >20.0 ng/mL (>3.0) 05/01/18 04:48 TSH 0.80 uIU/ml (0.34-5.60) 05/01/18 04:48 Urine Source CLEAN C 04/29/18 14:00 Urine Color YELLOW 04/29/18 14:00 Urine Clarity CLEAR (CLEAR) 04/29/18 14:00 Urine pH 6.0 (4.6 - 8.0) 04/29/18 14:00 Ur Specific [place] 1.015 (1.005-1.030) 04/29/18 14:00 Urine Protein NEGATIVE mg/dL (NEGATIVE) 04/29/18 14:00 Urine Glucose (UA) NEGATIVE mg/dL (NEGATIVE) 04/29/18 14:00 Urine Ketones NEGATIVE mg/dL (NEGATIVE) 04/29/18 14:00 Urine Blood NEGATIVE (NEGATIVE) 04/29/18 14:00 Urine Nitrate NEGATIVE (NEGATIVE) 04/29/18 14:00 Urine Bilirubin NEGATIVE (NEGATIVE) 04/29/18 14:00 Urine Urobilinogen 0.2 E.U./dL (0.2 - 1.0) 04/29/18 14:00 Ur Leukocyte Esterase NEGATIVE (NEGATIVE) 04/29/18 14:00 Urine RBC NONE SEEN /hpf (0-5) 04/29/18 14:00 Urine WBC 0-2 /hpf (0-5) 04/29/18 14:00 Ur Epithelial Cells FEW /lpf (FEW) 04/29/18 14:00 Urine Bacteria FEW /hpf (NONE SEEN) 04/29/18 14:00 Urine Opiates Screen POSITIVE (NEGATIVE) H 04/29/18 14:00 Urine Methadone Screen NEGATIVE (NEGATIVE) 04/29/18 14:00 Ur Barbiturates Screen NEGATIVE (NEGATIVE) 04/29/18 14:00 Ur Tricyclics Screen NEGATIVE (NEGATIVE) 04/29/18 14:00 Ur Phencyclidine Scrn NEGATIVE (NEGATIVE) 04/29/18 14:00 Amphetamines Screen NEGATIVE (NEGATIVE) 04/29/18 14:00 U Methamphetamines Scrn NEGATIVE (NEGATIVE) 04/29/18 14:00 U Benzodiazepines Scrn NEGATIVE (NEGATIVE) 04/29/18 14:00 U Cocaine Metab Screen NEGATIVE (NEGATIVE) 04/29/18 14:00 U Cannabinoids Screen NEGATIVE (NEGATIVE) 04/29/18 14:00 Thyroglobulin Antibody SEE REF. LAB REPORT 05/01/18 04:48 Influenza A (Rapid) NEG FOR INF A 04/29/18 14:00 Influenza B (Rapid) NEG FOR INF B 04/29/18 14:00 - Physical Exam Vitals and I&O: Vital Signs Temp 97.8 F 05/03/18 16:01 Pulse 93 05/03/18 19:16 Resp 18 05/03/18 19:16 BP 121/68 05/03/18 16:01 Pulse Ox 99 05/03/18 19:16 Intake & Output 05/03/18 05/03/18 05/04/18 06:59 18:59 06:59 Intake Total 1000 450 Balance 1000 450 Weight (lbs) 52.163 kg 52.163 kg 52.163 kg Intake: Intake, IV Amount 1000 50 Sodium Chloride 0.9% 1, 1000 000 ml @ 100 mls/hr IV . Q10H [facility] Rx#:[id number] cefTRIAXone 1 gm In 50 Sodium Chloride 0.9% 50 ml @ 100 mls/hr IV Q24HR [facility] Rx#:[id number] Oral 400 Other: # Voids 1 3 # Bowel Movements 0 0 Stool Characteristics Formed Formed Weight Source Bedscale Bedscale Bedscale Active Medications: Current Medications Acetaminophen (Tylenol Extra Strength) 500 mg PO Q4H PRN PRN Reason: Fever >101 Stop: 06/28/18 22:01 Acetaminophen/Hydrocodone Bitart ([place] 10 Mg/325 Mg) 1 tab PO Q6H PRN PRN Reason: Pain (Severe) Stop: 06/28/18 22:01 Last Admin: 05/03/18 14:40 Dose: 1 tab Albuterol/Ipratropium (Duoneb Neb) 3 ml HHN Q6HRT [facility] Stop: 06/29/18 00:59 Last Admin: 05/03/18 19:15 Dose: Not Given Albuterol/Ipratropium (Duoneb Neb) 3 ml HHN Q2H PRN PRN Reason: Wheezing Stop: 06/28/18 22:01 Budesonide (Pulmicort) 0.5 mg HHN BIDRT [facility] Stop: 06/29/18 18:59 Last Admin: 05/03/18 07:49 Dose: 0.5 mg Ceftriaxone Sodium 1 gm/ (Sodium Chloride) 50 mls @ 100 mls/hr IV Q24HR [facility] Stop: 07/02/18 08:59 Last Infusion: 05/03/18 10:30 Dose: Infused Lactobacillus Rhamnosus (Culturelle 15b) 1 each PO DAILY [facility] Stop: 07/03/18 08:59 Miscellaneous (Probiotic Screen) 1 ea MC PRN PRN PRN Reason: PROTOCOL Stop: 07/02/18 12:50 Morphine Sulfate (Ms-Contin) 15 mg PO BID [facility] Stop: 07/03/18 08:59 Nicotine (Nicotine Transdermal System) 21 mg TD DAILY@1999 [facility] Stop: 06/29/18 19:59 Last Admin: 05/03/18 20:08 Dose: 21 mg Ondansetron HCl (Zofran) 4 mg IV Q6H PRN PRN Reason: Nausea / Vomiting Stop: 06/28/18 22:01 General: Alert Cardiovascular: Regular rate Lungs: Other (rales) Abdomen: Soft Neurological: Other (Bilateral lower ext weakness) Assessment/Plan - Assessment Assessment: Acute bronchitis Chronic pain syndrome COPD Stage II sacro coccygeal decubitus wound Anemia thyroid nodule Weakness - Plan Plan: MS Contin added. [place] prn Highly encouraged PT Acute rehab @ [place] no bed available [facility] planning in progress Plan of care dw the patient and nursing staff Nutritional Asmnt/Malnutr-PDOC - Dietary Evaluation Malnutrition Findings (Please click <Entered> for more info): Nutritional Asmnt/Malnutrition Start: 05/03/18 17: 10 Text: Status: Complete Freq: Protocol: Document 05/03/18 17:10 [email or web address] (Rec: 05/03/18 17:21 [email or web address] [id number]) Nutritional Asmnt/Malnutrition Patient General Information Nutritional Screening Moderate Risk Diagnosis fever with hypotension Pertinent Medical Hx/Surgical Hx neuropathy, COPD, chronic pain syndrome, head injury Subjective Information Pt seen sitting up in bed at time of visit, eating lunch. Pt stated appetite is not bad. Per EMR, PO intake 25-75% since admitted. Current Diet Order/ Nutrition Support regular Pertinent Medications culturelle, nacl 0.9% Pertinent Labs 02/28 reviewed Nutritional Hx/Data Height 1.68 m Height (Calculated Centimeters) 167.6 Current Weight (lbs) 52.163 kg Weight (Calculated Kilograms) 52.2 Weight (Calculated Grams) 52778.1 [place] Body Weight 130 Body Mass Index (BMI) 18.6 Weight Status Approriate GI Symptoms GI Symptoms None Last BM none Difficult in: None Skin Integrity/Comment: bruise to right forehead, pressure area reddened to cocyxxy Current %PO Fair (50-74%) Estimated Nutritional Goals BEE in Kcals: Using Current wt Calories/Kcals/Kg 27-32 Kcals Calculated 5719-4515 Protein: Using Current wt Protein g/k-1.2 Protein Calculated 52-62 Fluid: ml 1404-1664ml (1ml/kcal) Nutritional Problem No current Nutrition Prob Problem n/A Malnutrition Alert Is there a minimum of two criteria No selected? Query Text:Check all the applicable criteria. A minimum of two criteria are recommended for diagnosis of either severe or non-severe malnutrition. Malnutrition Related to Morbid Obesity Malnutrition related to morbid obesity No Intervention/Recommendation Comments 1. Continue with regular diet as ordered. 2. Monitor PO intake, wt, labs and skin integrity 3. F/U as low risk in 7 days Expected Outcomes/Goals Expected Outcomes/Goals 1. PO intake to meet at least 75% of nutritional needs. 2. Wt stability, skin to remain intact, labs to approach WNL.
[2018-05-04] MEDS: Albuterol/Ipratropium Neb 3 ML AERS HHN SCH ×4 (01:59→20:39)
[2018-05-04 06:32] LABS: HEMATOCRIT 24.1 % (41.0-60); HEMOGLOBIN 8.2 gm/dL (12-16); MEAN CELL VOLUME 85.2 fl (81-100); MEAN CORPUSCULAR HEMOGLOBIN 28.9 pg (27.0-31.0); MEAN CORPUSCULAR HGB CONC 33.9 pg (28.0-36.0); MEAN PLATELET VOLUME 6.9 fl; PLATELET COUNT 236 Th/cmm (150-400); RED BLOOD COUNT 2.83 Mil/cmm (3.80-5.20); RED CELL DISTRIBUTION WIDTH 12.9 % (11.5-20.0); WHITE BLOOD COUNT 4.1 Th/cmm (4.8-10.8)
[2018-05-04] MEDS: Budesonide 0.5 Mg/2 mL Ud HHN SCH ×2 (07:17→20:39)
[2018-05-04] MEDS: Hydrocodone/APAP 10 mg/325 mg Tab PO PRN ×3 (07:33→17:54)
[2018-05-04] MEDS: Lactobacillus Rhamnosus GG 15 Billion CFU CAP.SPRINK PO SCH (08:56)
[2018-05-04] MEDS: cefTRIAXone 1 GM in Sodium Chloride 0.9% 50 ML IV SCH (08:56)
[2018-05-04 11:39] LABS: BAND NEUTROPHILE 3 % (0-10); BASOPHIL 0 % (0-3); EOSINOPHIL 17 % (0-5); LYMPHOCYTE 10 % (20-50); MONOCYTE 12 % (2-10); NEUTROPHILS 58 % (40-80); PLATELET ESTIMATE ADEQUATE (NORMAL)
--- NOTE | 2018-05-04 18:41 | Infectious Disease Prog Note ---
Infectious Disease Subjective - Review of Systems Service Date: 05/04/18 Subjective: There is no new change, no fever. Infectious Disease Objective - Results Result Diagrams: 05/04/18 06:18 05/01/18 04:48 Recent Labs: Laboratory Last Values WBC 4.1 Th/cmm (4.8-10.8) L 05/04/18 06:18 RBC 2.83 Mil/cmm (3.80-5.20) L 05/04/18 06:18 Hgb 8.2 gm/dL (12-16) L 05/04/18 06:18 Hct 24.1 % (41.0-60) L 05/04/18 06:18 MCV 85.2 fl (81-100) 05/04/18 06:18 MCH 28.9 pg (27.0-31.0) 05/04/18 06:18 MCHC Differential 33.9 pg (28.0-36.0) 05/04/18 06:18 RDW 12.9 % (11.5-20.0) 05/04/18 06:18 Plt Count 236 Th/cmm (150-400) 05/04/18 06:18 MPV 6.9 fl 05/04/18 06:18 Add Manual Diff YES 05/04/18 06:18 Neutrophils % 48.7 % (40.0-80.0) 05/03/18 04:55 Band Neutrophils % 3 % (0-10) 05/04/18 06:18 Lymphocytes % 27.6 % (20.0-50.0) 05/03/18 04:55 Monocytes % 11.3 % (2.0-10.0) H 05/03/18 04:55 Eosinophils % 10.8 % (0.0-5.0) H 05/03/18 04:55 Basophils % 1.6 % (0.0-2.0) 05/03/18 04:55 Neutrophils (Manual) 58 % (40-80) 05/04/18 06:18 Lymphocytes 10 % (20-50) L 05/04/18 06:18 Monocytes 12 % (2-10) H 05/04/18 06:18 Eosinophils 17 % (0-5) H 05/04/18 06:18 Basophils 0 % (0-3) 05/04/18 06:18 Platelet Estimate ADEQUATE (NORMAL) 05/04/18 06:18 Sodium 142 mEq/L (136-145) 05/01/18 04:48 Potassium 3.9 mEq/L (3.5-5.1) 05/01/18 04:48 Chloride 107 mEq/L (98-107) 05/01/18 04:48 Carbon Dioxide 26.7 mEq/L (21.0-31.0) 05/01/18 04:48 Anion Gap 12.2 (7.0-16.0) 05/01/18 04:48 BUN 22 mg/dL (7-25) 05/01/18 04:48 Creatinine 0.9 mg/dL (0.6-1.2) 05/01/18 04:48 Est GFR ( Amer) > 60.0 ml/min (>90) 05/01/18 04:48 Est GFR (Non-Af Amer) > 60.0 ml/min 05/01/18 04:48 BUN/Creatinine Ratio 24.4 05/01/18 04:48 Glucose 97 mg/dL (70-105) 05/01/18 04:48 Whole Bld Lactic Acid 1.60 mmol/L (0.60-1.99) 04/29/18 13:35 Calcium 9.3 mg/dL (8.6-10.3) 05/01/18 04:48 Phosphorus 4.1 mg/dL (2.5-5.0) 04/29/18 13:35 Magnesium 2.0 mg/dL (1.9-2.7) 04/29/18 13:35 Iron 16 ug/dL (27-139) L 05/01/18 04:48 TIBC 213 ug/dL (250-450) L 05/01/18 04:48 Iron Saturation 8 % (15-55) L 05/01/18 04:48 Unsaturated IBC 197 ug/dL (118-369) 05/01/18 04:48 Ferritin 340 ng/mL (15-150) H 05/01/18 04:48 Total Bilirubin 0.3 mg/dL (0.3-1.0) 05/01/18 04:48 AST 10 U/L (13-39) L 05/01/18 04:48 ALT 9 U/L (7-52) 05/01/18 04:48 Alkaline Phosphatase 101 U/L (34-104) 05/01/18 04:48 Ammonia 42 umol/L (16-53) 05/01/18 04:48 Total Protein 6.6 gm/dL (6.0-8.3) 05/01/18 04:48 Albumin 3.4 gm/dL (3.7-5.3) L 05/01/18 04:48 Globulin 3.2 gm/dL 05/01/18 04:48 Albumin/Globulin Ratio 1.1 (1.0-1.8) 05/01/18 04:48 Tumor Marker AFP 2.8 ng/mL (0.0-8.3) 05/03/18 04:55 Carcinoembryonic Ag 4.1 ng/mL (0.0-4.7) 05/01/18 04:48 CA 19-9 Antigen 41 U/mL (0-35) H 05/01/18 04:48 CA 125 Antigen SEE REF. LAB REPORT 05/01/18 04:48 Vitamin B12 635 pg/mL (232-1245) 05/01/18 04:48 Folic Acid >20.0 ng/mL (>3.0) 05/01/18 04:48 TSH 0.80 uIU/ml (0.34-5.60) 05/01/18 04:48 Urine Source CLEAN C 04/29/18 14:00 Urine Color YELLOW 04/29/18 14:00 Urine Clarity CLEAR (CLEAR) 04/29/18 14:00 Urine pH 6.0 (4.6 - 8.0) 04/29/18 14:00 Ur Specific [place] 1.015 (1.005-1.030) 04/29/18 14:00 Urine Protein NEGATIVE mg/dL (NEGATIVE) 04/29/18 14:00 Urine Glucose (UA) NEGATIVE mg/dL (NEGATIVE) 04/29/18 14:00 Urine Ketones NEGATIVE mg/dL (NEGATIVE) 04/29/18 14:00 Urine Blood NEGATIVE (NEGATIVE) 04/29/18 14:00 Urine Nitrate NEGATIVE (NEGATIVE) 04/29/18 14:00 Urine Bilirubin NEGATIVE (NEGATIVE) 04/29/18 14:00 Urine Urobilinogen 0.2 E.U./dL (0.2 - 1.0) 04/29/18 14:00 Ur Leukocyte Esterase NEGATIVE (NEGATIVE) 04/29/18 14:00 Urine RBC NONE SEEN /hpf (0-5) 04/29/18 14:00 Urine WBC 0-2 /hpf (0-5) 04/29/18 14:00 Ur Epithelial Cells FEW /lpf (FEW) 04/29/18 14:00 Urine Bacteria FEW /hpf (NONE SEEN) 04/29/18 14:00 Urine Opiates Screen POSITIVE (NEGATIVE) H 04/29/18 14:00 Urine Methadone Screen NEGATIVE (NEGATIVE) 04/29/18 14:00 Ur Barbiturates Screen NEGATIVE (NEGATIVE) 04/29/18 14:00 Ur Tricyclics Screen NEGATIVE (NEGATIVE) 04/29/18 14:00 Ur Phencyclidine Scrn NEGATIVE (NEGATIVE) 04/29/18 14:00 Amphetamines Screen NEGATIVE (NEGATIVE) 04/29/18 14:00 U Methamphetamines Scrn NEGATIVE (NEGATIVE) 04/29/18 14:00 U Benzodiazepines Scrn NEGATIVE (NEGATIVE) 04/29/18 14:00 U Cocaine Metab Screen NEGATIVE (NEGATIVE) 04/29/18 14:00 U Cannabinoids Screen NEGATIVE (NEGATIVE) 04/29/18 14:00 Thyroglobulin Antibody SEE REF. LAB REPORT 05/01/18 04:48 Influenza A (Rapid) NEG FOR INF A 04/29/18 14:00 Influenza B (Rapid) NEG FOR INF B 04/29/18 14:00 - Physical Exam Vitals and I&O: Vital Signs Temp 97.7 F 05/04/18 15:51 Pulse 80 05/04/18 15:51 Resp 18 05/04/18 17:18 BP 113/50 05/04/18 15:51 Pulse Ox 96 05/04/18 15:51 Intake & Output 05/03/18 05/04/18 05/04/18 18:59 06:59 18:59 Intake Total 450 200 150 Balance 450 200 150 Weight (lbs) 52.163 kg 57.788 kg 52.163 kg Intake: Intake, IV Amount 50 cefTRIAXone 1 gm In 50 Sodium Chloride 0.9% 50 ml @ 100 mls/hr IV Q24HR [facility] Rx#:[id number] Oral 400 200 150 Other: # Voids 3 1 # Bowel Movements 0 0 Stool Characteristics Formed Weight Source Bedscale Bedscale Bedscale Active Medications: Current Medications Acetaminophen (Tylenol Extra Strength) 500 mg PO Q4H PRN PRN Reason: Fever >101 Stop: 06/28/18 22:01 Acetaminophen/Hydrocodone Bitart ([place] 10 Mg/325 Mg) 1 tab PO Q6H PRN PRN Reason: Pain (Severe) Stop: 06/28/18 22:01 Last Admin: 05/04/18 17:54 Dose: 1 tab Albuterol/Ipratropium (Duoneb Neb) 3 ml HHN Q6HRT [facility] Stop: 06/29/18 00:59 Last Admin: 05/04/18 12:18 Dose: 3 ml Albuterol/Ipratropium (Duoneb Neb) 3 ml HHN Q2H PRN PRN Reason: Wheezing Stop: 06/28/18 22:01 Budesonide (Pulmicort) 0.5 mg HHN BIDRT [facility] Stop: 06/29/18 18:59 Last Admin: 05/04/18 07:17 Dose: Not Given Ceftriaxone Sodium 1 gm/ (Sodium Chloride) 50 mls @ 100 mls/hr IV Q24HR [facility] Stop: 07/02/18 08:59 Last Admin: 05/04/18 08:56 Dose: 100 mls/hr Lactobacillus Rhamnosus (Culturelle 15b) 1 each PO DAILY [facility] Stop: 07/03/18 08:59 Last Admin: 05/04/18 08:56 Dose: 1 each Miscellaneous (Probiotic Screen) 1 ea MC PRN PRN PRN Reason: PROTOCOL Stop: 07/02/18 12:50 Morphine Sulfate (Ms-Contin) 15 mg PO BID [facility] Stop: 07/03/18 08:59 Last Admin: 05/04/18 16:49 Dose: 15 mg Nicotine (Nicotine Transdermal System) 21 mg TD DAILY@1999 [facility] Stop: 06/29/18 19:59 Last Admin: 05/03/18 20:08 Dose: 21 mg Ondansetron HCl (Zofran) 4 mg IV Q6H PRN PRN Reason: Nausea / Vomiting Stop: 06/28/18 22:01 General: no acute distress, well developed, well nourished HEENT: atraumatic, normocephalic, PERRLA, EOMI, moist mucous membrane Neck: supple, no thyromegaly Cardiovascular: S1S2, regular Lungs: clear to auscultation bilaterally, clear to percussion Abdomen: soft, no tender, no distended, no mass Extremities: no cyanosis, no clubbing, no edema Neurological: awake, alert, oriented Skin: intact Infectious Disease Assmt/Plan - Assessment Assessment: 1. Hypotension and fever, may have sepsis. resolved. 2. Right forehead hematoma versus cellulitis or abscess. 3. Chronic hepatitis C. 4. Chronic pain syndrome. 5. Hyperlipidemia. 6. Dementia. 7. Chronic obstructive pulmonary disease. 8. Anemia. - Plan Plan: Continue the same treatment. Nutritional Asmnt/Malnutr-PDOC - Dietary Evaluation Malnutrition Findings (Please click <Entered> for more info): Nutritional Asmnt/Malnutrition Start: 05/03/18 17: 10 Text: Status: Complete Freq: Protocol: Document 05/03/18 17:10 [facility] (Rec: 05/03/18 17:21 [id number] Nutritional Asmnt/Malnutrition Patient General Information Nutritional Screening Moderate Risk Diagnosis fever with hypotension Pertinent Medical Hx/Surgical Hx neuropathy, COPD, chronic pain syndrome, head injury Subjective Information Pt seen sitting up in bed at time of visit, eating lunch. Pt stated appetite is not bad. Per EMR, PO intake 25-75% since admitted. Current Diet Order/ Nutrition Support regular Pertinent Medications culturelle, nacl 0.9% Pertinent Labs 02/28 reviewed Nutritional Hx/Data Height 1.68 m Height (Calculated Centimeters) 167.6 Current Weight (lbs) 52.163 kg Weight (Calculated Kilograms) 52.2 Weight (Calculated Grams) 00917.1 [place] Body Weight 130 Body Mass Index (BMI) 18.6 Weight Status Approriate GI Symptoms GI Symptoms None Last BM none Difficult in: None Skin Integrity/Comment: bruise to right forehead, pressure area reddened to cocyxxy Current %PO Fair (50-74%) Estimated Nutritional Goals BEE in Kcals: Using Current wt Calories/Kcals/Kg 27-32 Kcals Calculated 7851-3879 Protein: Using Current wt Protein g/k-1.2 Protein Calculated 52-62 Fluid: ml 1404-1664ml (1ml/kcal) Nutritional Problem No current Nutrition Prob Problem n/A Malnutrition Alert Is there a minimum of two criteria No selected? Query Text:Check all the applicable criteria. A minimum of two criteria are recommended for diagnosis of either severe or non-severe malnutrition. Malnutrition Related to Morbid Obesity Malnutrition related to morbid obesity No Intervention/Recommendation Comments 1. Continue with regular diet as ordered. 2. Monitor PO intake, wt, labs and skin integrity 3. F/U as low risk in 7 days Expected Outcomes/Goals Expected Outcomes/Goals 1. PO intake to meet at least 75% of nutritional needs. 2. Wt stability, skin to remain intact, labs to approach WNL.
[2018-05-04] MEDS: Nicotine 21 mg/24 hr Tdm TD SCH (21:03)
--- NOTE | 2018-05-04 21:31 | General Progress Note ---
Subjective - Review of Systems Service Date: 05/04/18 Subjective: Patient doing ok denied any complaints Objective - Results Result Diagrams: 05/04/18 06:18 05/01/18 04:48 Recent Labs: Laboratory Last Values WBC 4.1 Th/cmm (4.8-10.8) L 05/04/18 06:18 RBC 2.83 Mil/cmm (3.80-5.20) L 05/04/18 06:18 Hgb 8.2 gm/dL (12-16) L 05/04/18 06:18 Hct 24.1 % (41.0-60) L 05/04/18 06:18 MCV 85.2 fl (81-100) 05/04/18 06:18 MCH 28.9 pg (27.0-31.0) 05/04/18 06:18 MCHC Differential 33.9 pg (28.0-36.0) 05/04/18 06:18 RDW 12.9 % (11.5-20.0) 05/04/18 06:18 Plt Count 236 Th/cmm (150-400) 05/04/18 06:18 MPV 6.9 fl 05/04/18 06:18 Add Manual Diff YES 05/04/18 06:18 Neutrophils % 48.7 % (40.0-80.0) 05/03/18 04:55 Band Neutrophils % 3 % (0-10) 05/04/18 06:18 Lymphocytes % 27.6 % (20.0-50.0) 05/03/18 04:55 Monocytes % 11.3 % (2.0-10.0) H 05/03/18 04:55 Eosinophils % 10.8 % (0.0-5.0) H 05/03/18 04:55 Basophils % 1.6 % (0.0-2.0) 05/03/18 04:55 Neutrophils (Manual) 58 % (40-80) 05/04/18 06:18 Lymphocytes 10 % (20-50) L 05/04/18 06:18 Monocytes 12 % (2-10) H 05/04/18 06:18 Eosinophils 17 % (0-5) H 05/04/18 06:18 Basophils 0 % (0-3) 05/04/18 06:18 Platelet Estimate ADEQUATE (NORMAL) 05/04/18 06:18 Sodium 142 mEq/L (136-145) 05/01/18 04:48 Potassium 3.9 mEq/L (3.5-5.1) 05/01/18 04:48 Chloride 107 mEq/L (98-107) 05/01/18 04:48 Carbon Dioxide 26.7 mEq/L (21.0-31.0) 05/01/18 04:48 Anion Gap 12.2 (7.0-16.0) 05/01/18 04:48 BUN 22 mg/dL (7-25) 05/01/18 04:48 Creatinine 0.9 mg/dL (0.6-1.2) 05/01/18 04:48 Est GFR ( Amer) > 60.0 ml/min (>90) 05/01/18 04:48 Est GFR (Non-Af Amer) > 60.0 ml/min 05/01/18 04:48 BUN/Creatinine Ratio 24.4 05/01/18 04:48 Glucose 97 mg/dL (70-105) 05/01/18 04:48 Whole Bld Lactic Acid 1.60 mmol/L (0.60-1.99) 04/29/18 13:35 Calcium 9.3 mg/dL (8.6-10.3) 05/01/18 04:48 Phosphorus 4.1 mg/dL (2.5-5.0) 04/29/18 13:35 Magnesium 2.0 mg/dL (1.9-2.7) 04/29/18 13:35 Iron 16 ug/dL (27-139) L 05/01/18 04:48 TIBC 213 ug/dL (250-450) L 05/01/18 04:48 Iron Saturation 8 % (15-55) L 05/01/18 04:48 Unsaturated IBC 197 ug/dL (118-369) 05/01/18 04:48 Ferritin 340 ng/mL (15-150) H 05/01/18 04:48 Total Bilirubin 0.3 mg/dL (0.3-1.0) 05/01/18 04:48 AST 10 U/L (13-39) L 05/01/18 04:48 ALT 9 U/L (7-52) 05/01/18 04:48 Alkaline Phosphatase 101 U/L (34-104) 05/01/18 04:48 Ammonia 42 umol/L (16-53) 05/01/18 04:48 Total Protein 6.6 gm/dL (6.0-8.3) 05/01/18 04:48 Albumin 3.4 gm/dL (3.7-5.3) L 05/01/18 04:48 Globulin 3.2 gm/dL 05/01/18 04:48 Albumin/Globulin Ratio 1.1 (1.0-1.8) 05/01/18 04:48 Tumor Marker AFP 2.8 ng/mL (0.0-8.3) 05/03/18 04:55 Carcinoembryonic Ag 4.1 ng/mL (0.0-4.7) 05/01/18 04:48 CA 19-9 Antigen 41 U/mL (0-35) H 05/01/18 04:48 CA 125 Antigen SEE REF. LAB REPORT 05/01/18 04:48 Vitamin B12 635 pg/mL (232-1245) 05/01/18 04:48 Folic Acid >20.0 ng/mL (>3.0) 05/01/18 04:48 TSH 0.80 uIU/ml (0.34-5.60) 05/01/18 04:48 Urine Source CLEAN C 04/29/18 14:00 Urine Color YELLOW 04/29/18 14:00 Urine Clarity CLEAR (CLEAR) 04/29/18 14:00 Urine pH 6.0 (4.6 - 8.0) 04/29/18 14:00 Ur Specific [place] 1.015 (1.005-1.030) 04/29/18 14:00 Urine Protein NEGATIVE mg/dL (NEGATIVE) 04/29/18 14:00 Urine Glucose (UA) NEGATIVE mg/dL (NEGATIVE) 04/29/18 14:00 Urine Ketones NEGATIVE mg/dL (NEGATIVE) 04/29/18 14:00 Urine Blood NEGATIVE (NEGATIVE) 04/29/18 14:00 Urine Nitrate NEGATIVE (NEGATIVE) 04/29/18 14:00 Urine Bilirubin NEGATIVE (NEGATIVE) 04/29/18 14:00 Urine Urobilinogen 0.2 E.U./dL (0.2 - 1.0) 04/29/18 14:00 Ur Leukocyte Esterase NEGATIVE (NEGATIVE) 04/29/18 14:00 Urine RBC NONE SEEN /hpf (0-5) 04/29/18 14:00 Urine WBC 0-2 /hpf (0-5) 04/29/18 14:00 Ur Epithelial Cells FEW /lpf (FEW) 04/29/18 14:00 Urine Bacteria FEW /hpf (NONE SEEN) 04/29/18 14:00 Urine Opiates Screen POSITIVE (NEGATIVE) H 04/29/18 14:00 Urine Methadone Screen NEGATIVE (NEGATIVE) 04/29/18 14:00 Ur Barbiturates Screen NEGATIVE (NEGATIVE) 04/29/18 14:00 Ur Tricyclics Screen NEGATIVE (NEGATIVE) 04/29/18 14:00 Ur Phencyclidine Scrn NEGATIVE (NEGATIVE) 04/29/18 14:00 Amphetamines Screen NEGATIVE (NEGATIVE) 04/29/18 14:00 U Methamphetamines Scrn NEGATIVE (NEGATIVE) 04/29/18 14:00 U Benzodiazepines Scrn NEGATIVE (NEGATIVE) 04/29/18 14:00 U Cocaine Metab Screen NEGATIVE (NEGATIVE) 04/29/18 14:00 U Cannabinoids Screen NEGATIVE (NEGATIVE) 04/29/18 14:00 Thyroglobulin Antibody SEE REF. LAB REPORT 05/01/18 04:48 Influenza A (Rapid) NEG FOR INF A 04/29/18 14:00 Influenza B (Rapid) NEG FOR INF B 04/29/18 14:00 - Physical Exam Vitals and I&O: Vital Signs Temp 98.0 F 05/04/18 20:00 Pulse 91 05/04/18 20:00 Resp 18 05/04/18 20:00 BP 110/40 05/04/18 20:00 Pulse Ox 96 05/04/18 20:00 Intake & Output 05/04/18 05/04/18 05/05/18 06:59 18:59 06:59 Intake Total 200 550 Balance 200 550 Weight (lbs) 57.788 kg 52.163 kg Intake: Oral 200 550 Other: # Voids 3 2 # Bowel Movements 0 0 Weight Source Bedscale Bedscale Active Medications: Current Medications Acetaminophen (Tylenol Extra Strength) 500 mg PO Q4H PRN PRN Reason: Fever >101 Stop: 06/28/18 22:01 Acetaminophen/Hydrocodone Bitart ([place] 10 Mg/325 Mg) 1 tab PO Q6H PRN PRN Reason: Pain (Severe) Stop: 06/28/18 22:01 Last Admin: 05/04/18 17:54 Dose: 1 tab Albuterol/Ipratropium (Duoneb Neb) 3 ml HHN Q6HRT [facility] Stop: 06/29/18 00:59 Last Admin: 05/04/18 20:39 Dose: Not Given Albuterol/Ipratropium (Duoneb Neb) 3 ml HHN Q2H PRN PRN Reason: Wheezing Stop: 06/28/18 22:01 Budesonide (Pulmicort) 0.5 mg HHN BIDRT [facility] Stop: 06/29/18 18:59 Last Admin: 05/04/18 20:39 Dose: Not Given Ceftriaxone Sodium 1 gm/ (Sodium Chloride) 50 mls @ 100 mls/hr IV Q24HR [facility] Stop: 07/02/18 08:59 Last Admin: 05/04/18 08:56 Dose: 100 mls/hr Lactobacillus Rhamnosus (Culturelle 15b) 1 each PO DAILY [facility] Stop: 07/03/18 08:59 Last Admin: 05/04/18 08:56 Dose: 1 each Miscellaneous (Probiotic Screen) 1 ea MC PRN PRN PRN Reason: PROTOCOL Stop: 07/02/18 12:50 Morphine Sulfate (Ms-Contin) 15 mg PO BID [facility] Stop: 07/03/18 08:59 Last Admin: 05/04/18 16:49 Dose: 15 mg Nicotine (Nicotine Transdermal System) 21 mg TD DAILY@2000 [facility] Stop: 06/29/18 19:59 Last Admin: 05/04/18 21:03 Dose: 21 mg Ondansetron HCl (Zofran) 4 mg IV Q6H PRN PRN Reason: Nausea / Vomiting Stop: 06/28/18 22:01 General: Alert Cardiovascular: Regular rate, Normal S1, Normal S2 Lungs: Clear to auscultation Abdomen: Soft, no Tender Extremities: Other (onychomycosis) Neurological: Other (Bilateral lower ext weakness) Assessment/Plan - Assessment Assessment: Acute bronchitis Chronic pain syndrome COPD Onychomycosis bilateral feet Stage II sacro coccygeal decubitus wound Anemia thyroid nodule Weakness - Plan Plan: MS Contin added. [place] prn Highly encouraged PT TCU DC planning in progress Plan of care dw the patient and nursing staff Nutritional Asmnt/Malnutr-PDOC - Dietary Evaluation Malnutrition Findings (Please click <Entered> for more info): Nutritional Asmnt/Malnutrition Start: 05/03/18 17: 10 Text: Status: Complete Freq: Protocol: Document 05/03/18 17:10 [email or web address] (Rec: 05/03/18 17:21 [email or web address] [email or web address]) Nutritional Asmnt/Malnutrition Patient General Information Nutritional Screening Moderate Risk Diagnosis fever with hypotension Pertinent Medical Hx/Surgical Hx neuropathy, COPD, chronic pain syndrome, head injury Subjective Information Pt seen sitting up in bed at time of visit, eating lunch. Pt stated appetite is not bad. Per EMR, PO intake 25-75% since admitted. Current Diet Order/ Nutrition Support regular Pertinent Medications culturelle, nacl 0.9% Pertinent Labs 02/28 reviewed Nutritional Hx/Data Height 1.68 m Height (Calculated Centimeters) 167.6 Current Weight (lbs) 52.163 kg Weight (Calculated Kilograms) 52.2 Weight (Calculated Grams) 46220.1 [place] Body Weight 130 Body Mass Index (BMI) 18.6 Weight Status Approriate GI Symptoms GI Symptoms None Last BM none Difficult in: None Skin Integrity/Comment: bruise to right forehead, pressure area reddened to cocyxxy Current %PO Fair (50-74%) Estimated Nutritional Goals BEE in Kcals: Using Current wt Calories/Kcals/Kg 27-32 Kcals Calculated 3896-8357 Protein: Using Current wt Protein g/k-1.2 Protein Calculated 52-62 Fluid: ml 1404-1664ml (1ml/kcal) Nutritional Problem No current Nutrition Prob Problem n/A Malnutrition Alert Is there a minimum of two criteria No selected? Query Text:Check all the applicable criteria. A minimum of two criteria are recommended for diagnosis of either severe or non-severe malnutrition. Malnutrition Related to Morbid Obesity Malnutrition related to morbid obesity No Intervention/Recommendation Comments 1. Continue with regular diet as ordered. 2. Monitor PO intake, wt, labs and skin integrity 3. F/U as low risk in 7 days Expected Outcomes/Goals Expected Outcomes/Goals 1. PO intake to meet at least 75% of nutritional needs. 2. Wt stability, skin to remain intact, labs to approach WNL.
[2018-05-05] MEDS: Albuterol/Ipratropium Neb 3 ML AERS HHN SCH ×3 (00:28→12:40)
[2018-05-05] MEDS: Budesonide 0.5 Mg/2 mL Ud HHN SCH (06:46)
[2018-05-05] MEDS: Lactobacillus Rhamnosus GG 15 Billion CFU CAP.SPRINK PO SCH (09:20)
[2018-05-05] MEDS: cefTRIAXone 1 GM in Sodium Chloride 0.9% 50 ML IV SCH (10:00)
== END 2018-05-05 14:50 | DRG 315 ==
LOC: ER 12:41 → TELE 20:53
PROVIDERS: ADMIT Family Medicine; ATTEND Family Medicine
DX: I95.9 Hypotension, unspecified (principal); J44.1 Chronic obstructive pulmonary disease with (acute) exacerbation; L03.811 Cellulitis of head [any part, except face]; R64 Cachexia; J44.0 Chronic obstructive pulmonary disease with (acute) lower respiratory infection; R50.9 Fever, unspecified; J20.9 Acute bronchitis, unspecified; B18.2 Chronic viral hepatitis C; E78.5 Hyperlipidemia, unspecified; F03.90 Unspecified dementia, unspecified severity, without behavioral disturbance, psychotic disturbance, mood disturbance, and anxiety; D64.9 Anemia, unspecified; E04.1 Nontoxic single thyroid nodule; G62.9 Polyneuropathy, unspecified; L89.152 Pressure ulcer of sacral region, stage 2; L89.621 Pressure ulcer of left heel, stage 1; L89.611 Pressure ulcer of right heel, stage 1; R09.02 Hypoxemia; G89.4 Chronic pain syndrome; B35.1 Tinea unguium; Z88.8 Allergy status to other drugs, medicaments and biological substances; Z91.81 History of falling; Z87.891 Personal history of nicotine dependence; Z68.20 Body mass index [BMI] 20.0-20.9, adult
CPT/HCPCS: 36415-UA; 70450-TC; 70491-TC; 71045-TC; 71250-TC; 80048-TC; 80053-TC; 80307; 81001-TC; 82105-90; 82140-TC; 82378-90; 82607-90; 82728-90; 82746-90; 83540-90; 83550-90; 83605; 83735-TC; 84100-TC; 84432-90; 84443-TC; 85007-TC; 85025-TC; 86235-90; 86301-90; 86304-90; 87804-TC; 90779; 93005; 94640; 94760; 96374; 96375; 97530; J0696; J2060; J2543; J7030; Q9967; X3904; Z7610